=== PATIENT | female | born 1960 | race Caucasian/White ===

== ENCOUNTER → 2016-08-13 | Outpatient (CLI) | payer BC ==
--- NOTE | 2016-08-13 17:56 | US ---
EXAMINATION TYPE: US venous doppler duplex LE LT DATE OF EXAM: 08/13/2016 5:24 PM COMPARISON: NONE CLINICAL HISTORY: left leg pain. SIDE PERFORMED: left VESSELS IMAGED: External Iliac Vein (EIV) Common Femoral Vein Deep Femoral Vein Greater Saphenous Vein * Femoral Vein Popliteal Vein Small Saphenous Vein * Proximal Calf Veins (* superficial vessels) IMPRESSION: Negative for deep venous thrombosis, left lower extremity.
== END | disposition home or self-care (01) ==
LOC: RADUSMAIN 16:58
PROVIDERS: ATTEND Family Medicine
DX: M79.605 Pain in left leg (principal)

== ENCOUNTER 2016-11-18 15:47 | Inpatient (IN) | payer BC ==
--- NOTE | 2016-11-18 16:41 | ED ---
General Adult HPI - General Chief complaint: Altered Mental Status Stated complaint: HX: Stroke/Vison problem Time Seen by Provider: 11/18/16 16:30 Source: patient, RN notes reviewed Mode of arrival: ambulatory Limitations: no limitations - History of Present Illness Initial comments: Patient is a pleasant 55-year-old female presenting to the emergency department with concerns regarding her vision. Patient states around 1:30 she had loss of vision on the left part of the left eye. Fairly sudden onset. Symptoms lasted 10 or 15 minutes then resolved. Patient is back to normal at this time. Patient also had some mild paresthesias of the left arm. Patient did have a history of a stroke in 2009 with similar symptoms. Patient is having a right- sided headache. No confusion. No weakness. - Related Data Home Medications Medication Instructions Recorded Confirmed Aspirin 81 mg PO HS 11/18/16 11/18/16 Citalopram Hydrobromide [CeleXA] 40 mg PO HS 11/18/16 11/18/16 Hydrochlorothiazide [Hydrodiuril] 37.5 mg PO DAILY 11/18/16 11/18/16 Levothyroxine Sodium [Synthroid] 88 mcg PO DAILY 11/18/16 11/18/16 Nortriptyline [Pamelor] 75 mg PO HS 11/18/16 11/18/16 Simvastatin [Zocor] 40 mg PO HS 11/18/16 11/18/16 Allergies Allergy/AdvReac Type Severity Reaction Status Date / Time cheese Allergy Unknown Verified 11/18/16 16:20 egg Allergy Unknown Verified 11/18/16 16:20 influenza virus vaccine, Allergy Unknown Verified 11/18/16 16:22 specific mold Allergy Unknown Verified 11/18/16 16:20 mushroom Allergy Unknown Verified 11/18/16 16:20 phenobarbital Allergy Unknown Verified 11/18/16 16:20 Childhood Review of Systems ROS Statement: Those systems with pertinent positive or pertinent negative responses have been documented in the HPI. ROS Other: All systems not noted in ROS Statement are negative. Constitutional: Denies: fever Eyes: Denies: eye pain ENT: Denies: ear pain Respiratory: Denies: cough Cardiovascular: Denies: chest pain Endocrine: Denies: fatigue Gastrointestinal: Denies: abdominal pain Genitourinary: Denies: dysuria Musculoskeletal: Denies: back pain Skin: Denies: rash Neurological: Reports: headache Past Medical History Past Medical History: CVA/TIA, Hyperlipidemia, Hypertension, Thyroid Disorder History of Any Multi-Drug Resistant Organisms: None Reported Additional Past Surgical History / Comment(s): Right knee, Right wrist. Past Psychological History: No Psychological Hx Reported Smoking Status: Former smoker Past Alcohol Use History: Occasional Past Drug Use History: None Reported General Exam Limitations: no limitations General appearance: alert, in no apparent distress Head exam: Present: atraumatic Eye exam: Present: normal appearance, PERRL, EOMI Expanded Eyelids: Normal Inspection: Bilateral Pupils: Regular, Round: Bilateral Sclera/Conjunctival: Normal Inspection: Bilateral Posterior chamber: Normal Inspection: Bilateral ENT exam: Present: normal oropharynx Neck exam: Present: normal inspection Respiratory exam: Present: normal lung sounds bilaterally Cardiovascular Exam: Present: regular rate, normal rhythm Expanded Peripheral pulses: 2+: Radial (R), Radial (L), Dorsalis Pedis (R), Dorsalis Pedis (L) GI/Abdominal exam: Present: soft. Absent: tenderness Extremities exam: Present: normal inspection Neurological exam: Present: alert, CN II-XII intact. Absent: motor sensory deficit Expanded Cranial nerves: EOM's Intact: Normal Sensory exam: Upper Extremity Light Touch: Normal, Lower Extremity Light Touch: Normal Motor strength exam: RUE: 5, LUE: 5, RLE: 5, LLE: 5 Eye Response: (4) open spontaneously Motor Response: (6) obeys commands Verbal Response: (5) oriented Psychiatric exam: Present: normal affect, normal mood Skin exam: Absent: rash Course Vital Signs 11/18/16 16:11 Pulse Rate 96 Respiratory 18 Rate Blood Pressure 141/82 O2 Sat by Pulse 98 Oximetry EKG Findings - EKG Comments: EKG Findings:: Normal sinus rhythm 93. WI 172. QRS 96. QT 396. QTc 492. Left axis. LVH criteria. Septal Q waves. No acute ST change. Medical Decision Making - Medical Decision Making Patient reevaluated and unchanged. Patient updated on results and plan. Case was discussed in detail with Dr. Winchester, who will admit his patient. - Lab Data Result diagrams: 11/18/16 16:11 11/18/16 16:11 Lab Results 11/18/16 11/18/16 11/18/16 Range/Units 16:11 16:11 16:11 WBC 8.3 (3.8-10.6) k/uL RBC 4.51 (3.80-5.40) m/uL Hgb 14.1 (11.4-16.0) gm/dL Hct 44.7 (34.0-46.0) % MCV 99.2 (80.0-100.0) fL MCH 31.4 (25.0-35.0) pg MCHC 31.6 (31.0-37.0) g/dL RDW 13.4 (11.5-15.5) % Plt Count 226 (150-450) k/uL Neutrophils % 62 % Lymphocytes % 27 % Monocytes % 5 % Eosinophils % 3 % Basophils % 1 % Neutrophils # 5.1 (1.3-7.7) k/uL Lymphocytes # 2.3 (1.0-4.8) k/uL Monocytes # 0.4 (0-1.0) k/uL Eosinophils # 0.2 (0-0.7) k/uL Basophils # 0.1 (0-0.2) k/uL PT (9.0-12.0) sec INR (<1.1) APTT (22.0-30.0) sec Sodium 138 (137-145) mmol/L Potassium 3.7 (3.5-5.1) mmol/L Chloride 103 (98-107) mmol/L Carbon Dioxide 24 (22-30) mmol/L Anion Gap 11 mmol/L BUN 16 (7-17) mg/dL Creatinine 0.68 (0.52-1.04) mg/dL Est GFR (MDRD) Af Amer >60 (>60 ml/min/1.73 sqM) Est GFR (MDRD) Non-Af >60 (>60 ml/min/1.73 sqM) Glucose 84 (74-99) mg/dL Calcium 9.0 (8.4-10.2) mg/dL Total Bilirubin 0.5 (0.2-1.3) mg/dL AST 24 (14-36) U/L ALT 25 (9-52) U/L Alkaline Phosphatase 86 (38-126) U/L Total Creatine Kinase 67 (30-135) U/L CK-MB (CK-2) 1.0 (0.0-2.4) ng/mL CK-MB (CK-2) Rel Index 1.5 Troponin I 0.013 (0.000-0.034) ng/mL Total Protein 7.7 (6.3-8.2) g/dL Albumin 4.1 (3.5-5.0) g/dL 11/18/16 Range/Units 16:11 WBC (3.8-10.6) k/uL RBC (3.80-5.40) m/uL Hgb (11.4-16.0) gm/dL Hct (34.0-46.0) % MCV (80.0-100.0) fL MCH (25.0-35.0) pg MCHC (31.0-37.0) g/dL RDW (11.5-15.5) % Plt Count (150-450) k/uL Neutrophils % % Lymphocytes % % Monocytes % % Eosinophils % % Basophils % % Neutrophils # (1.3-7.7) k/uL Lymphocytes # (1.0-4.8) k/uL Monocytes # (0-1.0) k/uL Eosinophils # (0-0.7) k/uL Basophils # (0-0.2) k/uL PT 11.9 (9.0-12.0) sec INR 1.2 (<1.1) APTT 21.1 L (22.0-30.0) sec Sodium (137-145) mmol/L Potassium (3.5-5.1) mmol/L Chloride (98-107) mmol/L Carbon Dioxide (22-30) mmol/L Anion Gap mmol/L BUN (7-17) mg/dL Creatinine (0.52-1.04) mg/dL Est GFR (MDRD) Af Amer (>60 ml/min/1.73 sqM) Est GFR (MDRD) Non-Af (>60 ml/min/1.73 sqM) Glucose (74-99) mg/dL Calcium (8.4-10.2) mg/dL Total Bilirubin (0.2-1.3) mg/dL AST (14-36) U/L ALT (9-52) U/L Alkaline Phosphatase (38-126) U/L Total Creatine Kinase (30-135) U/L CK-MB (CK-2) (0.0-2.4) ng/mL CK-MB (CK-2) Rel Index Troponin I (0.000-0.034) ng/mL Total Protein (6.3-8.2) g/dL Albumin (3.5-5.0) g/dL - Radiology Data Radiology results: image reviewed (Chest x-ray shows no acute process. Computed tomography scan of the brain shows large old right posterior frontal and right parietal cortical infarct.) Disposition Clinical Impression: Transient ischemic attack (TIA) Disposition: ADMITTED IP TO THIS HOSP Time of Disposition: 18:16
[2016-11-18] MEDS ORDERED: SODIUM CHLORIDE 0.9% 1,000 ML IV STA (16:46)
[2016-11-18 17:17] LABS: ALT 25 U/L (9-52); AST 24 U/L (14-36); Alkaline Phosphatase 86 U/L (38-126); Anion Gap 11 mmol/L; Basophils # (A) 0.1 k/uL (0-0.2); Basophils % (A) 1 %; Blood Urea Nitrogen 16 mg/dL (7-17); CH 32.5; Carbon Dioxide 24 mmol/L (22-30); Chloride 103 mmol/L (98-107); Eosinophils # (A) 0.2 k/uL (0-0.7); Eosinophils % (A) 3 %; Glucose 84 mg/dL (74-99); HCT 44.7 % (34.0-46.0); HGB 14.1 gm/dL (11.4-16.0); Luc # (Auto) 0.15; Luc % (Auto) 2; Lymphocytes # (A) 2.3 k/uL (1.0-4.8); Lymphocytes % (A) 27 %; MCH 31.4 pg (25.0-35.0); MCHC 31.6 g/dL (31.0-37.0); MCV 99.2 fL (80.0-100.0); Monocytes # (A) 0.4 k/uL (0-1.0); Monocytes % (A) 5 %; Neutrophils # (A) 5.1 k/uL (1.3-7.7); Neutrophils % (A) 62 %; Non-African American GFR(MDRD) >60 (>60 ml/min/1.73 sqM); Potassium 3.7 mmol/L (3.5-5.1); RBC 4.51 m/uL (3.80-5.40); RDW 13.4 % (11.5-15.5); Sodium 138 mmol/L (137-145); Total Bilirubin 0.5 mg/dL (0.2-1.3); Total Protein 7.7 g/dL (6.3-8.2); WBC 8.3 k/uL (3.8-10.6); WBC (Perox) 8.78
[2016-11-18 17:18] LABS: INR 1.2 (<1.1); Prothrombin Time 11.9 sec (9.0-12.0)
[2016-11-18 17:29] LABS: Partial Thromboplastin Time 21.1 sec (22.0-30.0)
[2016-11-18 17:34] LABS: Troponin I 0.013 ng/mL (0.000-0.034)
--- NOTE | 2016-11-18 17:47 | CT ---
EXAMINATION TYPE: CT brain wo con DATE OF EXAM: 11/18/2016 5:34 PM COMPARISON: 10/30/2010 HISTORY: Patient complains of blurry vision with a history of prior stroke. CT DLP: 823.6 mGycm Automated exposure control for dose reduction was used. FINDINGS: There is a 4 cm area of hypodensity involving right posterior frontal lobe and right parietal lobe re lated to old cortical infarct. There is no mass effect nor midline shift. There is no sign of intracr anial hemorrhage. The calvarium is intact. IMPRESSION: Large old right posterior frontal and right parietal cortical infarct. No change compared to old exam . No acute intracranial abnormality.
--- NOTE | 2016-11-18 17:49 | XR ---
EXAMINATION TYPE: XR chest 1V portable DATE OF EXAM: 11/18/2016 5:34 PM COMPARISON: 10/30/2010 HISTORY: Blurred vision TECHNIQUE: Single frontal view of the chest is obtained. FINDINGS: There is no heart failure nor confluent pneumonic infiltrate. There are no hilar masses. C ostophrenic angles are clear. Bony thorax appears intact. IMPRESSION: No active cardiopulmonary disease. Inspiration is less than old exam.
[2016-11-18] MEDS ORDERED: ASPIRIN 325 MG TAB PO STA (18:17)
[2016-11-18] MEDS: SODIUM CHLORIDE 0.9% 1,000 ML IV SCH (18:46)
[2016-11-18 22:14] VITALS: BMI 29.2
[2016-11-18] MEDS: BUTA/APAP/CAF/COD 50-325-40-30 CAP PO PRN (22:38)
[2016-11-18] MEDS: CITALOPRAM HYDROBROMIDE 20 MG TAB PO SCH (22:39)
[2016-11-18] MEDS: HYDROCHLOROTHIAZIDE 25 MG TAB PO SCH (22:39)
[2016-11-18] MEDS: ATORVASTATIN 20 MG TAB PO SCH (22:40)
[2016-11-18] MEDS: NORTRIPTYLINE 25 MG CAP PO SCH (22:40)
[2016-11-19] MEDS: SODIUM CHLORIDE 0.9% 1,000 ML IV SCH ×3 (04:01→23:22)
[2016-11-19] MEDS: LEVOTHYROXINE 88 MCG TAB PO SCH (06:12)
[2016-11-19 07:36] LABS: Glucose,Whole Blood 91 mg/dL (75-99)
--- NOTE | 2016-11-19 08:06 | P.HPIM ---
History of Present Illness H&P Date: 11/19/16 Chief Complaint: Visual loss This is a history and physical an 55-year-old white female essentially admitted because of visual loss and distortion. She states yesterday she had acute visual loss of the left visual field. It was sudden in onset. It was not described as classic amaurosis PDX. However symptoms lasted for about 15 minutes. But because of her previous stroke symptoms in 2009, she was evaluated in the emergency room and is now appropriately admitted. She did have some mild headache and no postictal state. No previous history of seizure disorder. She has normal history depression, hypertension with hyperlipidemia. Multiple ALLERGIES are otherwise noted. Review of Systems Constitutional: Denies chills, Denies fever Eyes: denies blurred vision, denies pain Ears, nose, mouth and throat: Denies headache, Denies sore throat Cardiovascular: Denies chest pain, Denies shortness of breath Respiratory: Denies cough Gastrointestinal: Denies abdominal pain, Denies diarrhea, Denies nausea, Denies vomiting Neurological: Reports as per HPI, Reports visual changes Past Medical History Past Medical History: CVA/TIA, Hyperlipidemia, Hypertension, Thyroid Disorder Additional Past Medical History / Comment(s): 10-26-2009. HYPOTHYROID History of Any Multi-Drug Resistant Organisms: None Reported Additional Past Surgical History / Comment(s): Right knee, Right wrist. Past Anesthesia/Blood Transfusion Reactions: No Reported Reaction Past Psychological History: No Psychological Hx Reported Smoking Status: Light tobacco smoker Past Alcohol Use History: Occasional Past Drug Use History: None Reported - Past Family History Father Family Medical History: No Reported History Mother Family Medical History: No Reported History Medications and Allergies Home Medications Medication Instructions Recorded Confirmed Type Aspirin 325 mg PO DAILY 11/18/16 11/18/16 History Citalopram Hydrobromide [CeleXA] 40 mg PO HS 11/18/16 11/18/16 History Hydrochlorothiazide [Hydrodiuril] 37.5 mg PO DAILY 11/18/16 11/18/16 History Levothyroxine Sodium [Synthroid] 88 mcg PO DAILY 11/18/16 11/18/16 History Nortriptyline [Pamelor] 75 mg PO HS 11/18/16 11/18/16 History Simvastatin [Zocor] 40 mg PO HS 11/18/16 11/18/16 History Allergies Allergy/AdvReac Type Severity Reaction Status Date / Time cheese Allergy Unknown Verified 11/18/16 16:20 egg Allergy Unknown Verified 11/18/16 16:20 influenza virus vaccine, Allergy Unknown Verified 11/18/16 16:22 specific mold Allergy Unknown Verified 11/18/16 16:20 mushroom Allergy Unknown Verified 11/18/16 16:20 phenobarbital Allergy Unknown Verified 11/18/16 16:20 Childhood Physical Exam Vitals: Vital Signs Temp Pulse Pulse Resp BP BP BP 11/19/16 04:15 79 16 180/56 11/19/16 00:00 16 11/18/16 23:45 93 16 106/59 11/18/16 22:45 16 141/74 11/18/16 21:45 98.6 F 89 16 143/72 11/18/16 21:04 85 16 155/77 11/18/16 19:15 90 16 152/93 Pulse Ox 11/19/16 04:15 94 L 11/19/16 00:00 11/18/16 23:45 98 11/18/16 22:45 98 11/18/16 21:45 95 11/18/16 21:04 98 11/18/16 19:15 Intake and Output 11/18/16 11/19/16 11/19/16 22:59 06:59 14:59 Intake Total 60 Output Total 450 800 Balance -390 -800 Intake: IV 60 Sodium Chloride 0.9% 1, 60 000 ml @ 100 mls/hr IV . Q10H [facility] Rx#:[id number] Output: Urine 450 800 Other: Voiding Method Toilet # Voids 1 Weight 65.6 kg 65.9 kg - Constitutional General appearance: no acute distress - EENT Eyes: EOMI - Neck Neck: no lymphadenopathy - Respiratory Respiratory: bilateral: CTA - Cardiovascular Rhythm: regular Heart sounds: normal: S1, S2 - Gastrointestinal General gastrointestinal: no organomegaly, soft, no tenderness - Integumentary Integumentary: normal - Musculoskeletal Musculoskeletal: left sided weakness - Psychiatric Psychiatric: A&O x's 3, appropriate affect Results CBC & Chem 7: 11/18/16 16:11 11/18/16 16:11 Thrombosis Risk Factor Assmnt - Choose All That Apply Any of the Below Risk Factors Present?: Yes Each Factor Represents 1 point: Age 41-60 years Other Risk Factors: No Thrombosis Risk Factor Assessment Total Risk Factor Score: 1 Thrombosis Risk Factor Assessment Level: Low Risk Assessment and Plan (1) Visual changes Status: Acute (2) Hyperlipidemia Status: Chronic (3) Hypothyroidism Status: Chronic (4) Transient ischemic attack (TIA) Status: Acute Plan: We'll go ahead and consult neurology. Check echocardiogram and carotid Doppler if not done in the emergency room. We'll continue to follow from a medical perspective. Reconcile home medications. At this time she is a full code. He orders otherwise. Time with Patient: Greater than 30
[2016-11-19] MEDS: HYDROCHLOROTHIAZIDE 25 MG TAB PO SCH (09:20)
[2016-11-19] MEDS: BUTA/APAP/CAF/COD 50-325-40-30 CAP PO PRN ×2 (09:21→15:31)
--- NOTE | 2016-11-19 11:15 | ECHOF ---
Referral Reason:Thrombus MEASUREMENTS -------- HEIGHT: 149.9 cm WEIGHT: 65.8 kg BP: 180/56 RVIDd: 2.1 cm (< 3.3) IVSd: 1.0 cm (0.6 - 1.1) LVIDd: 4.0 cm (3.9 - 5.3) LVPWd: 1.1 cm (0.6 - 1.1) IVSs: 1.3 cm LVIDs: 2.4 cm LVPWs: 1.4 cm LA Diam: 3.0 cm (2.7 - 3.8) LAESV Index (A-L): 26.47 ml/m Ao Diam: 3.0 cm (2.0 - 3.7) AV Cusp: 1.2 cm (1.5 - 2.6) MV EXCURSION: 12.495 mm (> 18.000) MV EF SLOPE: 62 mm/s (70 - 150) EPSS: 0.7 cm MV E Randell: 1.31 m/s MV DecT: 271 ms MV A Randell: 1.15 m/s MV E/A Ratio: 1.13 AV maxP.63 mmHg AV meanP.31 mmHg AR PHT: 641 ms RAP: 5.00 mmHg RVSP: 31.97 mmHg FINDINGS -------- Sinus rhythm. This was a technically adequate study. The left ventricular size is normal. Left ventricular wall thickness is normal. Overall left ventricular systolic function is normal with, an EF between 60 - 65 %. The right ventricle is normal in size. Normal LA size by volume 22+/-6 ml/m2. The right atrium is normal in size. There is mild aortic regurgitation. There is mild aortic stenosis present. Peak/mean gradient across the Aortic Valve is 28.63mmHg / 17.31mmHg. The mitral valve leaflets are mild to moderately thickened. Mild mitral annular calcification present. Mild mitral regurgitation is present. Mild tricuspid regurgitation present. Right ventricular systolic pressure is normal at < 35 mmHg. The pulmonic valve was not well visualized. The aortic root size is normal. Normal inferior vena cava with normal inspiratory collapse consistent with estimated right atrial pressure of 5 mmHg. The pericardium is normal. CONCLUSIONS -------- 1. Sinus rhythm. 2. There is mild aortic stenosis present. 3. Peak/mean gradient across the Aortic Valve is 28.63mmHg / 17.31mmHg. 4. The mitral valve leaflets are mild to moderately thickened. 5. Mild mitral annular calcification present. 6. Mild mitral regurgitation is present. 7. Mild tricuspid regurgitation present. 8. Right ventricular systolic pressure is normal at < 35 mmHg. 9. The pulmonic valve was not well visualized. 10. The aortic root size is normal. 11. Normal inferior vena cava with normal inspiratory collapse consistent with estimated right atrial pressure of 5 mmHg. 12. This was a technically adequate study. 13. The pericardium is normal. 14. The left ventricular size is normal. 15. Left ventricular wall thickness is normal. 16. Overall left ventricular systolic function is normal with, an EF between 60 - 65 %. 17. The right ventricle is normal in size. 18. Normal LA size by volume 22+/-6 ml/m2. 19. The right atrium is normal in size. 20. There is mild aortic regurgitation. QA TEST ANALYST: Anita Cardona RDCS
--- NOTE | 2016-11-19 11:43 | US ---
EXAMINATION TYPE: US carotid duplex BILAT DATE OF EXAM: 11/19/2016 8:41 AM COMPARISON: Previous exam 30 October 2010 CLINICAL HISTORY: Stenosis. Stroke 2010, visual disturbance EXAM MEASUREMENTS: RIGHT: Peak Systolic Velocity (PSV) cm/sec ----- Right CCA: 55.9 ----- Right ICA: 88.4 ----- Right ECA: 80.5 ICA/CCA ratio: 1.6 RIGHT: End Diastole cm/sec ----- Right CCA: 20.4 ----- Right ICA: 35.2 ----- Right ECA: 16.0 LEFT: Peak Systolic Velocity (PSV) cm/sec ----- Left CCA: 68.6 ----- Left ICA: 88.7 ----- Left ECA: 86.9 ICA/CCA ratio: 1.3 LEFT: End Diastole cm/sec ----- Left CCA: 24.1 ----- Left ICA: 42.4 ----- Left ECA: 20.6 VERTEBRALS (direction of flow): Right Vertebral: Antegrade Left Vertebral: Antegrade Mild heterogeneous plaque at bilateral bulbs with no significant stenosis seen. IMPRESSION: No hemodynamic significant stenosis of the proximal internal carotid arteries bilaterally by Doppler criteria, an indirect measurement of carotid stenosis Criteria for Assigning % of Stenosis / Diameter reduction (Estimation based on the indirect measurements of the internal carotid artery velocities (ICA PSV). 1. Normal (no stenosis)=ICA PSV < 125 cm/s: ratio < 2.0: ICA EDV<40 cm/s. 2. Less than 50% stenosis=ICA PSV < 125 cm/s: ratio < 2.0: ICA EDV<40 cm/s. 3. 50 to 69% stenosis=ICA PSV of 125 to 230 cm/s: ration 2.0 ? 4.0: ICA EDV 40-100 cm/s. 4. Greater than 70% stenosis to near occlusion= ICA PSV > 230 cm/s: ratio > 4.0: ICA EDV > 100 cm/s. 5. Near occlusion= ICA PSV velocities may be low or undetectable: variable ratio and ICA EDV. 6. Total occlusion=unable to detect flow.
[2016-11-19] MEDS: ASPIRIN 325 MG TAB PO SCH (17:30)
[2016-11-19] MEDS: NORTRIPTYLINE 25 MG CAP PO SCH (19:52)
[2016-11-19] MEDS: ATORVASTATIN 20 MG TAB PO SCH (19:52)
[2016-11-19] MEDS: CITALOPRAM HYDROBROMIDE 20 MG TAB PO SCH (21:35)
--- NOTE | 2016-11-19 22:02 | P.CNNES ---
History of Present Illness Consult date: 11/18/16 Requesting physician: Devonte Sevilla Reason for Consult: Altered Mental Status Chief complaint: vision changes History of Present Illness: Patient's 55-year-old female who presented to the emergency department with visual related complaints. Patient states around 1330 hrs. yesterday she had loss of vision in the lateral half of her left eye. Patient also had right eye lateral field floaters. Recurrence was sudden in onset. Symptoms lasted 10-15 minutes and resolved. Patient does report that visual changes happen intermittently. Patient also has complaints of right-sided headache. Patient is currently using Fioricet as her abortive medication for her headaches since she was admitted. Patient also had mild paresthesias of the left arm with mild left arm weakness that resolved to baseline form her previous stroke. Patient does have a history of stroke in 2009 with similar symptoms. Patient did not have any confusion. On contact the patient was supine in bed and visitors at the bedside. The patient was in no acute distress. Review of Systems unless noted in the HPI above, all systems are negative. Constitutional: Reports fever Past Medical History Past Medical History: CVA/TIA, Hyperlipidemia, Hypertension, Thyroid Disorder Additional Past Medical History / Comment(s): 10-26-2009. HYPOTHYROID History of Any Multi-Drug Resistant Organisms: None Reported Additional Past Surgical History / Comment(s): Right knee, Right wrist. Past Anesthesia/Blood Transfusion Reactions: No Reported Reaction Past Psychological History: No Psychological Hx Reported Smoking Status: Light tobacco smoker Past Alcohol Use History: Occasional Past Drug Use History: None Reported - Past Family History Father Family Medical History: No Reported History Mother Family Medical History: No Reported History Medications and Allergies Home Medications Medication Instructions Recorded Confirmed Type Aspirin 325 mg PO DAILY 11/18/16 11/18/16 History Citalopram Hydrobromide [CeleXA] 40 mg PO HS 11/18/16 11/18/16 History Hydrochlorothiazide [Hydrodiuril] 37.5 mg PO DAILY 11/18/16 11/18/16 History Levothyroxine Sodium [Synthroid] 88 mcg PO DAILY 11/18/16 11/18/16 History Nortriptyline [Pamelor] 75 mg PO HS 11/18/16 11/18/16 History Simvastatin [Zocor] 40 mg PO HS 11/18/16 11/18/16 History Allergies Allergy/AdvReac Type Severity Reaction Status Date / Time influenza virus vaccine, Allergy Unknown Verified 11/18/16 16:22 specific mold Allergy Unknown Verified 11/18/16 16:20 mushroom Allergy Unknown Verified 11/18/16 16:20 phenobarbital Allergy Unknown Verified 11/18/16 16:20 Childhood Physical Examination - Vital Signs Vital Signs: Vital Signs Temp Pulse Pulse Resp BP BP Pulse Ox 11/19/16 20:22 97.7 F 77 14 118/75 11/19/16 20:12 79 79 16 11/19/16 19:46 97.9 F 79 16 101/64 97 11/19/16 16:00 79 80 13 11/19/16 15:52 97.7 F 80 13 122/78 98 11/19/16 12:00 79 79 12 11/19/16 11:32 97.6 F 79 12 125/86 100 11/19/16 08:23 79 76 10 L 11/19/16 07:45 97.0 F L 76 10 L 104/59 97 11/19/16 04:15 79 16 180/56 94 L 11/19/16 00:00 16 11/18/16 23:45 93 16 106/59 98 11/18/16 22:45 16 141/74 98 11/18/16 21:45 98.6 F 89 16 143/72 95 Intake and Output 11/19/16 11/19/16 11/19/16 06:59 14:59 22:59 Intake Total 1060 337 Output Total 800 850 400 Balance -800 210 -63 Intake: IV 800 Sodium Chloride 0.9% 1, 800 000 ml @ 100 mls/hr IV . Q10H [facility] Rx#:[id number] Oral 260 337 Output: Urine 800 850 400 Other: Voiding Method Toilet Toilet Toilet # Voids 1 Weight 65.9 kg Constitutional: AOx3, cooperative HEENT: NC/AT, no facial asymmetry is seen. Throat: Supple, no masses Respiratory: No increased work of breathing Cardiac: Regular rate and Rhythm GI: non tender, non distended Musculoskeletal: Automatic Winder Operator strengths are 4+/5 -LUE, 5/5 RUE, Lower extremity strengths are equal bilaterally at 5/5. Lyphedema noted in the LUE. Neurological: CN II-XII in tact, patient was AOx3, speech and language are normal, no unilateralizing weakness, no seizure activity note on physical exam. Sensation was normal. Integementary: no rash, no erythema Psychiatric: mood and affect appropriate Results - Laboratory Findings CBC and BMP: 11/18/16 16:11 11/18/16 16:11 Assessment and Plan (1) Migraine Status: Acute (2) Transient ischemic attack (TIA) Status: Acute (3) Visual changes Status: Acute Plan: Patient does have a history of stroke in 2009 with similar onset symptoms. Patient has not returned to baseline and her symptoms are waxing and waning at this time. On exam, the patient did have left upper extremity weakness compared to right. As well as complaints of intermittent and significant right head pain, left lateral visual field cut and right lateral field floaters. Patient has been provided Fioricet which has failed to decrease her headaches and head pain to a tolerable level. Based on the patient's history of migraine as well as CVA and her current lack of resolution to her symptoms, I am going to order an MRI of the brain without contrast to attempt to identify any other new or underlying etiology. EEG has been ordered. Serum homocystine level has been ordered. Lipid panel has been ordered. Patient may continue Fioricet as an abortive medication for her head pain. Prescribed Ativan 1 mg to be used to facilitate MRI due to the patient's anxiety. continue aspirin and Lipitor at current dose of frequency.Continue neuro checks. status: Neurology will continue to follow right updates as needed or warranted. I discussed the patient's pertinent medical information with Dr. Hercules. He agrees with the plan of care as implemented.
[2016-11-19] MEDS ORDERED: LORazepam 2 MG/ML SYRINGE IV ONE (22:10)
[2016-11-20] MEDS: LEVOTHYROXINE 88 MCG TAB PO SCH (06:18)
[2016-11-20 06:39] LABS: Cholesterol 106 mg/dL (<200); HDL Cholesterol 41 mg/dL (40-60); Triglycerides 63 mg/dL (<150)
--- NOTE | 2016-11-20 08:43 | MR ---
EXAMINATION TYPE: MR brain wo con DATE OF EXAM: 11/20/2016 8:20 AM COMPARISON: CT brain 2 days earlier. HISTORY: TIA per order. Admitted for neuro deficits or blurred vision 2 days earlier TECHNIQUE: Multiplanar, multisequence imaging of the brain and brainstem is performed without IV cont rast. FINDINGS: Motion artifact degradation is seen. Diffusion weighted images demonstrate no evidence of a recent infarct or other diffusion abnormality. There is no worrisome extraaxial fluid collection . There is ventricular and sulcal prominence consis tent with diffuse cerebral atrophy. There is large old infarct right frontal parietal region in the t he MCA distribution redemonstrated. There are some scattered small foci of T2 hyperintensity seen thr oughout the white matter bilaterally. Less than 10 lesions are felt present. Lesions are presumed on basis of product of chronic small vessel ischemic change. Midline structures demonstrate normal morphology. The craniocervical junction appears within normal limits. Normal vascular flow voids are present. The visualized sinuses are clear and the globes are intact. Some increased fluid signal bilateral mastoid air cells is present. IMPRESSION: There is large infarct right frontal parietal region in the MCA distribution redemonstrat ed. There is mild diffuse cerebral atrophy and chronic small vessel ischemic change noted. No evidenc e of a recent infarct.
[2016-11-20] MEDS: ASPIRIN 325 MG TAB PO SCH (10:12)
[2016-11-20] MEDS: HYDROCHLOROTHIAZIDE 25 MG TAB PO SCH (10:12)
[2016-11-20] MEDS: SODIUM CHLORIDE 0.9% 1,000 ML IV SCH (11:38)
[2016-11-20 15:44] VITALS: BP 120/75; PULSE 81; RESP 18; TEMP 97.8
--- NOTE | 2016-11-20 15:49 | P.PN ---
Subjective Principal diagnosis: transischemic attack. This 55-year-old white female who has had previous history of CVA in 2009 who came in with visual distortion and possible TIA symptomatology. MRI is pending. However, echocardiogram and carotid Doppler are nominal. He still continues to have residual from previous CVA but no continued headache stated swallowing. Objective - Vital Signs Vital signs: Vital Signs Temp 97.0 F L 11/20/16 07:30 Pulse 76 11/20/16 07:42 Resp 16 11/20/16 07:42 BP 102/57 11/20/16 07:30 Pulse Ox 97 11/20/16 07:30 Intake & Output 11/19/16 11/20/16 11/20/16 18:59 06:59 18:59 Intake Total 1060 1737 Output Total 1250 Balance -190 1737 Weight 66 kg Intake: IV 800 800 Sodium Chloride 0.9% 1, 800 800 000 ml @ 100 mls/hr IV . Q10H ANGELITA Rx#:[id number] Oral 260 937 Output: Urine 1250 Other: Voiding Method Toilet Toilet Toilet # Voids 1 - Constitutional General appearance: Present: average body habitus - EENT Eyes: Absent: abnormal pupil - Neck Neck: Absent: stridor - Respiratory Respiratory: bilateral: CTA - Cardiovascular Rhythm: regular Heart sounds: normal: S1, S2 - Gastrointestinal General gastrointestinal: Present: soft. Absent: tenderness - Musculoskeletal Musculoskeletal: Present: left sided weakness - Psychiatric Psychiatric: Present: A&O x's 3 - Labs CBC & Chem 7: 11/18/16 16:11 11/18/16 16:11 Assessment and Plan (1) Visual changes Status: Acute (2) Hyperlipidemia Status: Chronic (3) Hypothyroidism Status: Chronic (4) Transient ischemic attack (TIA) Status: Acute Plan: await MRI results. Appreciate neurology input. Anticipate discharge once neurology clears the patient and decides whether or not she deserves recurrent and chronic anticoagulation given her previous CVA history.
--- NOTE | 2016-11-20 15:54 | P.DS ---
Providers Date of admission: 11/18/16 18:17 Attending physician: Christopher Winchester Primary care physician: Christopher Winchester - Discharge Diagnosis(es) (1) Visual changes Current Visit: Yes Status: Acute Priority: Medium (2) Hyperlipidemia Current Visit: Yes Status: Chronic (3) Hypothyroidism Current Visit: Yes Status: Chronic (4) Transient ischemic attack (TIA) Current Visit: Yes Status: Acute Priority: High Hospital Course: This is a discharge transfer summary on a 55-year-old white female with history of previous infarct/CVA in 2009. The patient was admitted because of visual distortion. Neurology and ophthalmology were consulted. We suspect migraine versus optic neuritis element. MRI is negative for any type of new finding. She now is stable. Giselle has been tolerating with codeine. Question need for long-term use or intermittent long-term use for this medication. She'll just be discharged once cleared by neurology and follow-up with me in approximately 3-7 days. Patient Condition at Discharge: Stable Plan - Discharge Summary Discharge Medication List Aspirin 325 mg PO DAILY 11/18/16 [History] Citalopram Hydrobromide [CeleXA] 40 mg PO HS 11/18/16 [History] Hydrochlorothiazide [Hydrodiuril] 37.5 mg PO DAILY 11/18/16 [History] Levothyroxine Sodium [Synthroid] 88 mcg PO DAILY 11/18/16 [History] Nortriptyline [Pamelor] 75 mg PO HS 11/18/16 [History] Simvastatin [Zocor] 40 mg PO HS 11/18/16 [History] Aspirin 325 mg PO DAILY tab 11/20/16 [Rx] Follow up Appointment(s)/Referral(s): Christopher Winchester MD [Primary Care Provider] - 1 Week Discharge Disposition: HOME SELF-CARE
--- NOTE | 2016-11-20 22:25 | P.PN ---
Subjective Principal diagnosis: TIA Patient is a 55-year-old female being followed by neurology who presented to the ED with vision changes. Changes include: Left eye lateral left cut, right eye lateral floaters. Symptoms were intermittent and lasted 10-15 minutes then resolved. Patient returned back to baseline with the exception of headache and mild paresthesias of the left arm. Patient does have a history of both migraines and CVA. Headache is centered over the right side of the head. No confusion. No weakness. On contact today, the patient was supine in bed and resting and in no acute distress with family in the room. Objective - Vital Signs Vital signs: Vital Signs Temp 97.8 F 11/20/16 15:37 Pulse 81 11/20/16 15:37 Resp 18 11/20/16 15:37 BP 120/75 11/20/16 15:37 Pulse Ox 98 11/20/16 15:37 Intake & Output 11/20/16 11/20/16 11/21/16 06:59 18:59 06:59 Intake Total 1737 Balance 1737 Weight 66 kg Intake: IV 800 Sodium Chloride 0.9% 1, 800 000 ml @ 100 mls/hr IV . Q10H ANGELITA Rx#:[id number] Oral 937 Other: Voiding Method Toilet Toilet # Voids 1 - Exam Constitutional: AOx3, cooperative HEENT: NC/AT, no facial asymmetry is see. Neck: Supple, no masses Respiratory: No increased work of breathing Cardiac: Regular rate and Rhythm GI: non tender, non distended Musculoskeletal: Computer Networker strengths are equal bilaterally 5/5, Lower extremity strengths are equal bilaterally at 5/5. Neurological: CN II-XII in tact, patient was AOx3, speech and language are normal, no unilateralizing weakness, no seizure activity note on physical exam. Sensation was normal. Integementary: no rash, no erythema Psychiatric: mood and affect appropriate - Constitutional Constitutional Comment(s): All systems not noted in HPI above are considered negative. - Labs CBC & Chem 7: 11/18/16 16:11 11/18/16 16:11 Assessment and Plan (1) Migraine Status: Acute (2) Transient ischemic attack (TIA) Status: Acute (3) Visual changes Status: Acute Plan: Patient does have a history of stroke in 2009 with similar onset symptoms. Patient has returned to baseline. On exam, the patient no longer had upper extremity weakness. Visual changes had resolved. Patient is resting comfortably. States Fioricet did reduce her head pain. MRI noted no new changes. EEG has been ordered. Serum homocystine level Normal. Lipid panel was normal. Patient may continue Fioricet as an abortive medication for her head pain. Patient will continue aspirin and Lipitor existing dose and frequency. status: Neurology will The patient for discharge. Patient to be notified to follow up with our office in 10-14 days. I discussed the patient's pertinent medical information with Dr. Hercules. He agrees with the plan of care as implemented.
--- NOTE | 2016-12-09 09:20 | EEG ---
DATE OF SERVICE: 11/20/2016 REASON FOR TESTING: Transient ischemic attack. AGE: 55Y DESCRIPTION OF THE PROCEDURE: This EEG was performed using a 21-channel digital electroencephalograph, following the international 10 to 20 system. DESCRIPTION OF THE RECORDING: From the beginning of the tracing, and with the patient's eyes closed, the background rhythm was mostly consisting of 8 Hz alpha frequency in the posterior occipital leads. No obvious asymmetry is seen. Frequent muscle and movement artifacts are noticed. Photic stimulation was performed with a minimal driving response seen. No pathological waves were elicited. Hyperventilation was not performed. The patient remains awake throughout the tracing. No obvious epileptiform discharges were seen. Her EKG lead showed a regular rate and rhythm. INTERPRETATION: This awake EEG can be considered within normal limits. There was no asymmetry seen. No epileptiform discharges were noticed. The absence of epileptiform discharges does not rule out the diagnosis of epilepsy, therefore, clinical correlation is recommended.
== END 2016-11-20 16:36 | disposition home or self-care (01) | DRG 69 ==
LOC: EC 15:47 → 6SEL 18:17
PROVIDERS: ADMIT Family Medicine; ATTEND Family Medicine
DX: G45.9 Transient cerebral ischemic attack, unspecified (principal); I10 Essential (primary) hypertension; H46.9 Unspecified optic neuritis; G43.909 Migraine, unspecified, not intractable, without status migrainosus; E03.9 Hypothyroidism, unspecified; E78.5 Hyperlipidemia, unspecified; F32.9 Major depressive disorder, single episode, unspecified; F17.200 Nicotine dependence, unspecified, uncomplicated; Z86.73 Personal history of transient ischemic attack (TIA), and cerebral infarction without residual deficits; Z79.82 Long term (current) use of aspirin; Z79.899 Other long term (current) drug therapy
CPT/HCPCS: 36415; 70450; 70551; 71010; 80053; 80061; 82550; 82553; 83090; 84484; 85025; 85610; 85730; 93005; 93306; 93880; 95819

== ENCOUNTER → 2017-12-23 | Outpatient (CLI) | payer BC ==
--- NOTE | 2017-12-28 11:50 | MM ---
Reason for exam: screening (asymptomatic). Last mammogram was performed 4 years and 11 months ago. History: Patient is nulliparous. Benign left mammotome panel of the left breast, January 11, 2006. Physical Findings: A clinical breast exam by your physician is recommended on an annual basis and results should be correlated with mammographic findings. MG 3D Screening Mammo W/Cad Bilateral CC and MLO view(s) were taken. Prior study comparison: January 20, 2013, UP DIGITAL BILATERAL MAMMOGRAM w/CAD. January 10, 2013, bilateral digital screening mammo w/CAD. There are scattered fibroglandular densities. No significant changes when compared with prior studies. ASSESSMENT: Benign, BI-RAD 2 RECOMMENDATION: Routine screening mammogram of both breasts in 1 year.
== END | disposition home or self-care (01) ==
LOC: RADMAMWWP 13:28
PROVIDERS: ATTEND Family Medicine
DX: Z12.31 Encounter for screening mammogram for malignant neoplasm of breast (principal)
CPT/HCPCS: 77063; 77067

== ENCOUNTER → 2018-11-03 | Outpatient (CLI) | payer BC ==
--- NOTE | 2018-11-03 13:25 | CT ---
EXAMINATION TYPE: CT angio chest DATE OF EXAM: 11/03/2018 COMPARISON: None HISTORY: 57-year-old female Chest discomfort, elevated d-dimer, cardiomegaly TECHNIQUE: Contiguous axial scanning of the chest performed with IV Contrast, patient injected with 1 00 mL of Isovue 370. Coronal/sagittal MIP reconstructions performed. CT DLP: 210.8 mGycm Automated exposure control for dose reduction was used. FINDINGS: The heart is mildly enlarged. Trace pericardial fluid. No flattening of the interventricular septum b ut there is prominent reflux of contrast into the hepatic veins. Coronary vessel calcifications are p resent. Mild aneurysm ascending aorta 4.0 cm. Conventional arch vessel branching anatomy. Satisfactory opacification of the pulmonary arterial system. No evidence for pulmonary embolus. No thoracic lymphadenopathy by CT size criteria. Visualized upper abdomen shows no gross abnormal body. Bones: Accentuated midthoracic kyphosis. No osseous destructive process. Evaluation of the lungs shows mild diffuse bronchial wall thickening. Some mild patchy peripheral lef t basilar opacity is present. No pleural effusion. IMPRESSION: 1. NO EVIDENCE FOR PULMONARY EMBOLUS. 2. CARDIOMEGALY, CAD, AND PROMINENT REFLUX OF CONTRAST INTO THE HEPATIC VEINS. CORRELATE FOR ELEVATED RIGHT HEART PRESSURES. 3. MILD ANEURYSM ASCENDING AORTA 4.0 CM. 4. MILD DIFFUSE BRONCHIAL WALL THICKENING SUGGESTS BRONCHITIS OR ASTHMA. THERE IS SOME PATCHY OPACITY AT THE LATERAL LEFT BASE THAT COULD REPRESENT ATELECTASIS OR DEVELOPING INFILTRATE/PNEUMONIA. CLINIC ALLY CORRELATE.
== END | disposition home or self-care (01) ==
LOC: RADCTMAIN 12:39
PROVIDERS: ATTEND Family Medicine
DX: I25.10 Atherosclerotic heart disease of native coronary artery without angina pectoris (principal); I51.7 Cardiomegaly; I71.2 Thoracic aortic aneurysm, without rupture; R91.8 Other nonspecific abnormal finding of lung field; Z88.0 Allergy status to penicillin; Z88.1 Allergy status to other antibiotic agents
CPT/HCPCS: 83880; 71275; 36415; Q9967

== ENCOUNTER → 2018-11-03 | Outpatient (CLI) | payer BC ==
--- NOTE | 2018-11-03 19:14 | ECHOF ---
Referral Reason:I35.0 AORTIC STENOSIS MEASUREMENTS -------- HEIGHT: 154.9 cm WEIGHT: 66.7 kg BP: 118/75 RVIDd: 2.7 cm (< 3.3) IVSd: 1.2 cm (0.6 - 1.1) LVIDd: 4.6 cm (3.9 - 5.3) LVPWd: 1.2 cm (0.6 - 1.1) IVSs: 1.3 cm LVIDs: 3.8 cm LVPWs: 1.8 cm LA Diam: 3.8 cm (2.7 - 3.8) LAESV Index (A-L): 38.53 ml/m Ao Diam: 2.9 cm (2.0 - 3.7) AV Cusp: 1.3 cm (1.5 - 2.6) MV EXCURSION: 12.495 mm (> 18.000) MV EF SLOPE: 45 mm/s (70 - 150) EPSS: 1.5 cm MV E Randell: 2.17 m/s MV DecT: 115 ms MV A Randell: 1.83 m/s MV E/A Ratio: 1.18 AV maxP.62 mmHg AV maxP.62 mmHg AV meanP.68 mmHg AR PHT: 550 ms RAP: 15.00 mmHg RVSP: 71.27 mmHg FINDINGS -------- Sinus rhythm. This was a technically adequate study. The left ventricular size is normal. There is borderline concentric left ventricular hypertrophy. Overall left ventricular systolic function is moderate-severely impaired with, an EF between 30 - 35 %. The right ventricle is normal in size. LA is moderately dilated 34-39 ml/m2 The right atrium is normal in size. There is moderate aortic valve sclerosis. There is mild aortic regurgitation. There is mild aorti c stenosis present. Peak/mean gradient across the Aortic Valve is 29.62mmHg / 14.68mmHg. The mitral valve leaflets are moderately thickened. Moderate mitral annular calcification present. Severe mitral regurgitation is present. The peak and mean MV gradients are 15.94mmHg 6.99mmHg as measured by doppler. Moderate mitral stenosis. Severe tricuspid regurgitation present. There is severe pulmonary hypertension. The right ventric ular systolic pressure, as measured by Doppler, is 71.27mmHg. The pulmonic valve was not well visualized. The aortic root size is normal. Normal inferior vena cava with less than 50% inspiratory collapse consistent with estimated right atr ial pressure of 15 mmHg. There is no pericardial effusion. CONCLUSIONS -------- 1. Sinus rhythm. 2. This was a technically adequate study. 3. The left ventricular size is normal. 4. There is borderline concentric left ventricular hypertrophy. 5. Overall left ventricular systolic function is moderate-severely impaired with, an EF between 30 - 35 %. 6. The right ventricle is normal in size. 7. LA is moderately dilated 34-39 ml/m2 8. The right atrium is normal in size. 9. There is moderate aortic valve sclerosis. 10. There is mild aortic regurgitation. 11. There is mild aortic stenosis present. 12. Peak/mean gradient across the Aortic Valve is 29.62mmHg / 14.68mmHg. 13. The mitral valve leaflets are moderately thickened. 14. Moderate mitral annular calcification present. 15. Severe mitral regurgitation is present. 16. The peak and mean MV gradients are 15.94mmHg 6.99mmHg as measured by doppler. 17. Moderate mitral stenosis. 18. Severe tricuspid regurgitation present. 19. There is severe pulmonary hypertension. 20. The right ventricular systolic pressure, as measured by Doppler, is 71.27mmHg. 21. The pulmonic valve was not well visualized. 22. The aortic root size is normal. 23. Normal inferior vena cava with less than 50% inspiratory collapse consistent with estimated right atrial pressure of 15 mmHg. 24. There is no pericardial effusion. BUDGET ENGINEER: Anita Cardona RDCS
== END | disposition home or self-care (01) ==
LOC: RADECHMAIN 12:43
PROVIDERS: ATTEND Internal Medicine
DX: I08.3 Combined rheumatic disorders of mitral, aortic and tricuspid valves (principal); I27.20 Pulmonary hypertension, unspecified
CPT/HCPCS: 93306

== ENCOUNTER → 2018-11-24 | Outpatient (CLI) | payer BC ==
[2018-11-24 19:52] LABS: Anion Gap 8.9 mmol/L (4.00-12.00); Calcium 8.9 mg/dL (8.7-10.3); Carbon Dioxide 29.1 mmol/L (21.6-31.8); Potassium 3.8 mmol/L (3.5-5.5)
== END | disposition home or self-care (01) ==
LOC: LABWHC1 13:43
PROVIDERS: ATTEND Internal Medicine
DX: I35.0 Nonrheumatic aortic (valve) stenosis (principal); I11.0 Hypertensive heart disease with heart failure; I50.1 Left ventricular failure, unspecified
CPT/HCPCS: 36415; 80048; 83880

== ENCOUNTER → 2018-12-12 | Outpatient (CLI) | payer BC ==
[2018-12-12 19:22] LABS: Anion Gap 9.3 mmol/L (4.00-12.00); Calcium 9.2 mg/dL (8.7-10.3); Carbon Dioxide 28.7 mmol/L (21.6-31.8); Potassium 3.9 mmol/L (3.5-5.5)
== END ==
LOC: LABWHC1 13:42
PROVIDERS: ATTEND Internal Medicine
DX: I50.1 Left ventricular failure, unspecified (principal)
CPT/HCPCS: 36415; 80048; 83880

== ENCOUNTER → 2018-12-19 | Outpatient (CLI) | payer BC ==
[2018-12-19 18:48] LABS: Anion Gap 8.9 mmol/L (4.00-12.00); Calcium 9.3 mg/dL (8.7-10.3); Carbon Dioxide 29.1 mmol/L (21.6-31.8); Potassium 3.8 mmol/L (3.5-5.5)
== END ==
LOC: LABWHC1 14:31
PROVIDERS: ATTEND Internal Medicine
DX: I50.1 Left ventricular failure, unspecified (principal)
CPT/HCPCS: 36415; 80048; 83880

== ENCOUNTER → 2019-01-13 | Outpatient (CLI) | payer BC ==
[2019-01-13 16:52] LABS: African American GFR (CKD) 112.3 (60.0-200.0); BUN/Creat Ratio 28.57 Ratio (12.00-20.00); Calcium 8.8 mg/dL (8.7-10.3); Potassium 3.6 mmol/L (3.5-5.5)
== END | disposition home or self-care (01) ==
LOC: LABWHC1 10:58
PROVIDERS: ATTEND Internal Medicine
DX: I10 Essential (primary) hypertension (principal)
CPT/HCPCS: 36415; 80048

== ENCOUNTER → 2019-02-10 | Outpatient (CLI) | payer BC ==
[2019-02-10 16:21] LABS: African American GFR (CKD) 95.5 (60.0-200.0); Anion Gap 9.4 mmol/L (4.00-12.00); BUN/Creat Ratio 21.25 Ratio (12.00-20.00); Calcium 9.4 mg/dL (8.7-10.3); Carbon Dioxide 29.6 mmol/L (21.6-31.8); Potassium 3.8 mmol/L (3.5-5.5)
== END | disposition home or self-care (01) ==
LOC: LABWHC1 09:56
PROVIDERS: ATTEND Internal Medicine
DX: I50.1 Left ventricular failure, unspecified (principal)
CPT/HCPCS: 36415; 80048; 83880

== ENCOUNTER → 2019-02-22 | Outpatient (CLI) | payer BC ==
[2019-02-22 15:57] LABS: African American GFR (CKD) 95.5 (60.0-200.0); Anion Gap 8.3 mmol/L (4.00-12.00); BUN/Creat Ratio 28.75 Ratio (12.00-20.00); Calcium 9.1 mg/dL (8.7-10.3); Carbon Dioxide 30.7 mmol/L (21.6-31.8)
== END | disposition home or self-care (01) ==
LOC: LABWHC1 10:34
PROVIDERS: ATTEND Internal Medicine
DX: I50.1 Left ventricular failure, unspecified (principal)
CPT/HCPCS: 36415; 80048; 83880

== ENCOUNTER → 2019-03-01 | Outpatient (CLI) | payer BC ==
[2019-03-01 20:40] LABS: African American GFR (CKD) 95.5 (60.0-200.0); Anion Gap 13.3 mmol/L (4.00-12.00); BUN/Creat Ratio 27.5 Ratio (12.00-20.00); Calcium 8.8 mg/dL (8.7-10.3); Carbon Dioxide 26.7 mmol/L (21.6-31.8); Non-African American GFR(CKD) 82.4 (60.0-200.0); Potassium 3.6 mmol/L (3.5-5.5)
== END | disposition home or self-care (01) ==
LOC: LABWHC1 14:54
PROVIDERS: ATTEND Internal Medicine
DX: I50.1 Left ventricular failure, unspecified (principal)
CPT/HCPCS: 36415; 80048; 83880

== ENCOUNTER → 2019-03-09 | Outpatient (CLI) | payer BC ==
[2019-03-09 18:39] LABS: African American GFR (CKD) 95.5 (60.0-200.0); Anion Gap 8.4 mmol/L (4.00-12.00); BUN/Creat Ratio 28.75 Ratio (12.00-20.00); Carbon Dioxide 31.6 mmol/L (21.6-31.8); Potassium 3.3 mmol/L (3.5-5.5)
== END | disposition home or self-care (01) ==
LOC: LABWHC1 10:51
PROVIDERS: ATTEND Internal Medicine
DX: I50.1 Left ventricular failure, unspecified (principal)
CPT/HCPCS: 36415; 80048; 83880

== ENCOUNTER → 2019-03-20 | Outpatient (CLI) | payer BC ==
[2019-03-21 01:02] LABS: African American GFR (CKD) 82.8 (60.0-200.0); Anion Gap 7.1 mmol/L (4.00-12.00); BUN/Creat Ratio 28.89 Ratio (12.00-20.00); Calcium 9.1 mg/dL (8.7-10.3); Carbon Dioxide 30.9 mmol/L (21.6-31.8); Non-African American GFR(CKD) 71.5 (60.0-200.0); Potassium 3.9 mmol/L (3.5-5.5)
== END ==
LOC: LABWHC1 14:27
PROVIDERS: ATTEND Internal Medicine
DX: I50.1 Left ventricular failure, unspecified (principal); I10 Essential (primary) hypertension
CPT/HCPCS: 36415; 80048

== ENCOUNTER 2019-09-29 15:46 | Emergency (ER) | payer BC ==
[2019-09-29 15:50] VITALS: TEMP 97.6
--- NOTE | 2019-09-29 16:17 | ED ---
General Adult HPI - General Chief complaint: Shortness of Breath Stated complaint: SOB/poss blood clot Time Seen by Provider: 09/29/19 16:01 Source: patient Mode of arrival: ambulatory Limitations: no limitations - History of Present Illness Initial comments: Dictation was produced using [employer] dictation software. please excuse any grammatical, word or spelling errors. Chief Complaint: 58-year-old male past medical history of heart failure presents with shortness of breath. History of Present Illness: He 8-year-old female she has past medical history of heart, dyslipidemia and hypertension thyroid disease. She's been feeling short of breath for the last several days. She called medical staff at [facility]. He told her she needs come to the emergency department for evaluation of possible blood clot. Patient reports that she has a hole in her heart. She suffered a stroke in 2009. Patient denies any pain symptoms at this time. No focal neurologic deficits. Denies any lower extremity symptoms. Denies any history of DVT. The ROS documented in this emergency department record has been reviewed and confirmed by me. Those systems with pertinent positive or negative responses have been documented in the HPI. All other systems are other negative and/or noncontributory. PHYSICAL EXAM: General Impression: Alert and oriented x3, not in acute distress HEENT: Normocephalic atraumatic, extra-ocular movements intact, pupils equal and reactive to light bilaterally, mucous membranes moist. Cardiovascular: Tachycardic, regular no murmurs Chest: Minimal crackles Abdomen: Bowel sounds present, abdomen soft, non-tender, non-distended, no organomegaly Musculoskeletal: Pulses present and equal in all extremities, no peripheral edema, no asymmetrical leg swelling or calf tenderness or popliteal pain Motor: no focal deficits noted Neurological: CN II-XII grossly intact, no focal motor or sensory deficits noted Skin: Intact with no visualized rashes Psych: Normal affect and mood ED course: 58-year-old female presents with chief complaint of shortness of breath. She was sent in by [facility] medical staff. She had discussion with their staff over the phone and she was instructed to come to the emergency department for evaluation of possible blood clot, Dennis Huang pulmonary embolus. Signs upon arrival shows heart rate of 107, rest of vital signs within acceptable limits. EKG shows left bundle branch block. Left bundle branch block pattern not evident from EKG back in 2017. Patient has no pain complaints at this time. EKG does not meet sgarbossa criteria. No PE is on differential, heart failure is more likely the constipation shortness of breath given patient's history. Chart review shows that patient had echocardiogram done 11/03/2018. There is no comment on atrial or ventricular septal defect. Patient did have depressed ejection fraction at that time. Return evaluation obtained. CBC unremarkable. Coag panel unremarkable. D- dimer 0.32. Metabolic panel is negative. Cardiac enzymes negative. Brain natruretic peptide is 3520. Chest x-ray shows cardiomegaly without suspicious acute pulmonary process. Patient given some Lasix. Clinical presentation con sistent with mild CHF exacerbation. Patient given the option to be admitted however she requested discharge. She states she will follow-up with her pain management specialist from [facility]. She requests a work note for today and tomorrow. Sooner follow-up with primary care physician or pain management specialist. Return parameters discussed. EKG interpretation: Ventricular rate 104, sinus tachycardia, left bundle branch block, NE interval 174, QRS 150, QTc 533. No NE prolongation, no QTC prolongation, no ST or T-wave changes noted. EKG compared to [default value] showing no changes. Overall, this EKG is unremarkable - Related Data Home Medications Medication Instructions Recorded Confirmed Aspirin 325 mg PO DAILY 11/18/16 11/18/16 Citalopram Hydrobromide [CeleXA] 40 mg PO HS 11/18/16 11/18/16 Hydrochlorothiazide [Hydrodiuril] 37.5 mg PO DAILY 11/18/16 11/18/16 Levothyroxine Sodium [Synthroid] 88 mcg PO DAILY 11/18/16 11/18/16 Nortriptyline [Pamelor] 75 mg PO HS 11/18/16 11/18/16 Simvastatin [Zocor] 40 mg PO HS 11/18/16 11/18/16 Previous Rx's Medication Instructions Recorded Aspirin 325 mg PO DAILY tab 11/20/16 Allergies Allergy/AdvReac Type Severity Reaction Status Date / Time influenza virus vaccine, Allergy Unknown Verified 09/29/19 15:50 specific mold Allergy Unknown Verified 09/29/19 15:50 mushroom Allergy Unknown Verified 09/29/19 15:50 phenobarbital Allergy Unknown Verified 09/29/19 15:50 Childhood Review of Systems ROS Statement: Those systems with pertinent positive or pertinent negative responses have been documented in the HPI. ROS Other: All systems not noted in ROS Statement are negative. Past Medical History Past Medical History: Heart Failure, CVA/TIA, Hyperlipidemia, Hypertension, Thyroid Disorder Additional Past Medical History / Comment(s): 10-26-2009. HYPOTHYROID History of Any Multi-Drug Resistant Organisms: None Reported Additional Past Surgical History / Comment(s): Right knee, Right wrist. Past Anesthesia/Blood Transfusion Reactions: No Reported Reaction Past Psychological History: No Psychological Hx Reported Smoking Status: Light tobacco smoker Past Alcohol Use History: Occasional Past Drug Use History: None Reported - Past Family History Father Family Medical History: No Reported History Mother Family Medical History: No Reported History General Exam Limitations: no limitations Course Vital Signs 09/29/19 15:48 Temperature 97.6 F Pulse Rate 107 H Respiratory 22 Rate Blood Pressure 130/87 O2 Sat by Pulse 98 Oximetry Medical Decision Making - Lab Data Result diagrams: 09/29/19 16:08 09/29/19 16:08 Lab Results 09/29/19 09/29/19 09/29/19 Range/Units 16:08 16:08 16:08 WBC 7.0 (3.8-10.6) k/uL RBC 4.19 (3.80-5.40) m/uL Hgb 13.0 (11.4-16.0) gm/dL Hct 40.8 (34.0-46.0) % MCV 97.5 (80.0-100.0) fL MCH 31.1 (25.0-35.0) pg MCHC 31.9 (31.0-37.0) g/dL RDW 13.9 (11.5-15.5) % Plt Count 257 (150-450) k/uL Neutrophils % 57 % Lymphocytes % 35 % Monocytes % 4 % Eosinophils % 1 % Basophils % 1 % Neutrophils # 3.9 (1.3-7.7) k/uL Lymphocytes # 2.4 (1.0-4.8) k/uL Monocytes # 0.3 (0-1.0) k/uL Eosinophils # 0.1 (0-0.7) k/uL Basophils # 0.1 (0-0.2) k/uL PT 12.0 (9.0-12.0) sec INR 1.2 H (<1.2) APTT 24.2 (22.0-30.0) sec D-Dimer 0.32 (<0.60) mg/L FEU Sodium 139 (137-145) mmol/L Potassium 4.1 (3.5-5.1) mmol/L Chloride 103 (98-107) mmol/L Carbon Dioxide 25 (22-30) mmol/L Anion Gap 11 mmol/L BUN 24 H (7-17) mg/dL Creatinine 1.06 H (0.52-1.04) mg/dL Est GFR (CKD-EPI)AfAm 68 (>60 ml/min/1.73 sqM) Est GFR (CKD-EPI)NonAf 59 (>60 ml/min/1.73 sqM) Glucose 99 (74-99) mg/dL Calcium 9.2 (8.4-10.2) mg/dL Magnesium 1.8 (1.6-2.3) mg/dL Troponin I (0.000-0.034) ng/mL NT-Pro-B Natriuret Pep pg/mL 09/29/19 09/29/19 Range/Units 16:08 16:08 WBC (3.8-10.6) k/uL RBC (3.80-5.40) m/uL Hgb (11.4-16.0) gm/dL Hct (34.0-46.0) % MCV (80.0-100.0) fL MCH (25.0-35.0) pg MCHC (31.0-37.0) g/dL RDW (11.5-15.5) % Plt Count (150-450) k/uL Neutrophils % % Lymphocytes % % Monocytes % % Eosinophils % % Basophils % % Neutrophils # (1.3-7.7) k/uL Lymphocytes # (1.0-4.8) k/uL Monocytes # (0-1.0) k/uL Eosinophils # (0-0.7) k/uL Basophils # (0-0.2) k/uL PT (9.0-12.0) sec INR (<1.2) APTT (22.0-30.0) sec D-Dimer (<0.60) mg/L FEU Sodium (137-145) mmol/L Potassium (3.5-5.1) mmol/L Chloride (98-107) mmol/L Carbon Dioxide (22-30) mmol/L Anion Gap mmol/L BUN (7-17) mg/dL Creatinine (0.52-1.04) mg/dL Est GFR (CKD-EPI)AfAm (>60 ml/min/1.73 sqM) Est GFR (CKD-EPI)NonAf (>60 ml/min/1.73 sqM) Glucose (74-99) mg/dL Calcium (8.4-10.2) mg/dL Magnesium (1.6-2.3) mg/dL Troponin I <0.012 (0.000-0.034) ng/mL NT-Pro-B Natriuret Pep 3520 pg/mL Disposition Clinical Impression: Heart failure Disposition: HOME SELF-CARE Condition: Good Instructions (If sedation given, give patient instructions): Heart Failure (ER) Is patient prescribed a controlled substance at d/c from ED?: No Referrals: Christopher Winchester MD [Primary Care Provider] - 1-2 days Time of Disposition: 18:03
[2019-09-29 16:20] LABS: Basophils # (A) 0.1 k/uL (0-0.2); Basophils % (A) 1 %; Eosinophils # (A) 0.1 k/uL (0-0.7); Eosinophils % (A) 1 %; HCT 40.8 % (34.0-46.0); Lymphocytes # (A) 2.4 k/uL (1.0-4.8); Lymphocytes % (A) 35 %; MCH 31.1 pg (25.0-35.0); MCHC 31.9 g/dL (31.0-37.0); MCV 97.5 fL (80.0-100.0); Mean Platelet Volume 7.9; Monocytes # (A) 0.3 k/uL (0-1.0); Monocytes % (A) 4 %; Neutrophils # (A) 3.9 k/uL (1.3-7.7); Neutrophils % (A) 57 %; Platelet Count 257 k/uL (150-450); RBC 4.19 m/uL (3.80-5.40); RDW 13.9 % (11.5-15.5)
[2019-09-29 16:31] LABS: Calcium 9.2 mg/dL (8.4-10.2); Magnesium 1.8 mg/dL (1.6-2.3); Potassium 4.1 mmol/L (3.5-5.1)
--- NOTE | 2019-09-29 16:31 | XR ---
EXAMINATION TYPE: XR chest 1V portable DATE OF EXAM: 09/29/2019 COMPARISON: Chest x-ray November 18, 2016. CTA chest November 03, 2018. HISTORY: Dyspnea. TECHNIQUE: Single AP portable frontal upright view of the chest is obtained. FINDINGS: Overlying EKG leads are now present. There is no focal air space opacity, pleural effusion, or pneumothorax seen. The cardiac silhouette size is enlarged. The osseous structures are intact. IMPRESSION: Cardiomegaly without suspicious acute pulmonary process.
[2019-09-29 16:41] LABS: D-Dimer 0.32 mg/L FEU (<0.60); INR 1.2 (<1.2); Partial Thromboplastin Time 24.2 sec (22.0-30.0)
[2019-09-29] MEDS ORDERED: FUROSEMIDE 10 MG/ML 4 ML VIAL IV STA (16:49)
[2019-09-29 18:09] VITALS: BP 106/82; PULSE 88; RESP 18
== END 2019-09-29 18:18 | disposition home or self-care (01) ==
LOC: EC 15:46
DX: I50.9 Heart failure, unspecified (principal); I44.7 Left bundle-branch block, unspecified; R00.0 Tachycardia, unspecified; I11.0 Hypertensive heart disease with heart failure; E78.5 Hyperlipidemia, unspecified; E03.9 Hypothyroidism, unspecified; F17.200 Nicotine dependence, unspecified, uncomplicated; Z88.7 Allergy status to serum and vaccine; Z88.8 Allergy status to other drugs, medicaments and biological substances; Z91.018 Allergy to other foods; Z91.048 Other nonmedicinal substance allergy status; Z79.82 Long term (current) use of aspirin; Z79.890 Hormone replacement therapy; Z79.899 Other long term (current) drug therapy; Z86.73 Personal history of transient ischemic attack (TIA), and cerebral infarction without residual deficits
CPT/HCPCS: 36415; 93005; 85379; 83880; 80048; 83735; 84484; 85025; 85610; 85730; 71045; 99285; 96374; J1940

== ENCOUNTER 2020-05-14 08:18 | Inpatient (IN) | payer BC ==
--- NOTE | 2020-05-14 08:51 | ED ---
General Adult HPI - General Chief complaint: Shortness of Breath Stated complaint: SOB Time Seen by Provider: 05/14/20 08:27 Source: patient, RN notes reviewed Mode of arrival: ambulatory Limitations: no limitations - History of Present Illness Initial comments: This 59-year-old female with a past medical history of heart failure with ejection fraction between 30-35%, CVA, hyperlipidemia, hypertension presents to the emergency department for a chief complaint of shortness of breath. Patient reports that she has had shortness of breath for about one week. States it is progressively worsening. Patient states she has had intermittent chest pain as sociated with this shortness of breath. States walking upstairs seems to worsen her shortness of breath and chest pain. Patient is denying any chest pain at this time. Patient also admits to a productive cough with yellow sputum. Patient has been a smoker for 20 years however did quit. She has never been told she has COPD. She denies any fevers at home. Patient denies any peripheral swelling.Patient has no other complaints at this time including abdominal pain, nausea or vomiting, headache, or visual changes. - Related Data Home Medications Medication Instructions Recorded Confirmed Simvastatin [Zocor] 40 mg PO HS 11/18/16 05/14/20 Aspirin EC [Ecotrin Low Dose] 81 mg PO HS 05/14/20 05/14/20 Furosemide [Lasix] 120 mg PO DAILY 05/14/20 05/14/20 Levothyroxine Sodium [Synthroid] 75 mcg PO DAILY 05/14/20 05/14/20 Nortriptyline [Pamelor] 100 mg PO HS 05/14/20 05/14/20 Potassium Chloride ER [K-Dur 20] 60 meq PO DAILY@1200 05/14/20 05/14/20 Allergies Allergy/AdvReac Type Severity Reaction Status Date / Time influenza virus vaccine, Allergy Unknown Verified 05/14/20 09:14 specific mold Allergy Unknown Verified 05/14/20 09:14 mushroom Allergy Unknown Verified 05/14/20 09:14 phenobarbital Allergy Unknown Verified 05/14/20 09:14 Childhood EGG WHITES Allergy Rash/Hives Uncoded 05/14/20 09:14 Review of Systems ROS Statement: Those systems with pertinent positive or pertinent negative responses have been documented in the HPI. ROS Other: All systems not noted in ROS Statement are negative. Past Medical History Past Medical History: Heart Failure, CVA/TIA, Hyperlipidemia, Hypertension, Thyroid Disorder Additional Past Medical History / Comment(s): HYPOTHYROID History of Any Multi-Drug Resistant Organisms: None Reported Additional Past Surgical History / Comment(s): Right knee, Right wrist. Past Anesthesia/Blood Transfusion Reactions: No Reported Reaction Past Psychological History: No Psychological Hx Reported Smoking Status: Never smoker Past Alcohol Use History: Occasional Past Drug Use History: None Reported - Past Family History Father Family Medical History: No Reported History Mother Family Medical History: No Reported History General Exam Limitations: no limitations General appearance: alert, in no apparent distress Head exam: Present: atraumatic, normocephalic, normal inspection Eye exam: Present: normal appearance, PERRL, EOMI. Absent: scleral icterus, conjunctival injection, periorbital swelling ENT exam: Present: normal exam, mucous membranes moist Neck exam: Present: normal inspection, full ROM. Absent: tenderness, meningismus, lymphadenopathy Respiratory exam: Present: normal lung sounds bilaterally. Absent: respiratory distress, wheezes, rales, rhonchi, stridor Cardiovascular Exam: Present: regular rate, normal rhythm, normal heart sounds. Absent: systolic murmur, diastolic murmur, rubs, gallop, clicks GI/Abdominal exam: Present: soft, normal bowel sounds. Absent: distended, tenderness, guarding, rebound, rigid Neurological exam: Present: alert Course Vital Signs 05/14/20 05/14/20 08:23 10:02 Temperature 97.5 F L Pulse Rate 102 H 81 Respiratory 20 18 Rate Blood Pressure 111/78 102/74 O2 Sat by Pulse 97 100 Oximetry EKG Findings - EKG Comments: EKG Findings:: Normal sinus rhythm, Left bundle branch block, ventricular rate 91, MI interval 188, QTC 538. Compared to previous EKG from 09/29/2019 which is similar. Medical Decision Making - Medical Decision Making Vitals are stable. Patient is 97% on room air. No chest pain at this time. CBC CMP unremarkable. No leukocytosis. D-dimer is within normal limits. No ischemic changes on EKG. Troponin within normal limits. Chest x-ray image was reviewed by myself and Dr. Barajas and there does appear to be a right lower lobe pneumonia. I did call x-ray as radiologist has not yet read the report, they will be looking into this. Patient does have an elevated BNP of 6790 which is up from 3000 earlier this year. Echocardiogram last year showed an ejection fraction of 30-35%. Patient will be treated for community-acquired pneumonia as well as heart failure exacerbation. She does admit to mild swelling in her an kles as well. - Lab Data Result diagrams: 05/14/20 08:53 05/14/20 08:53 Lab Results 05/14/20 05/14/20 05/14/20 Range/Units 08:53 08:53 08:53 WBC 7.8 (3.8-10.6) k/uL RBC 4.28 (3.80-5.40) m/uL Hgb 12.8 (11.4-16.0) gm/dL Hct 42.6 (34.0-46.0) % MCV 99.6 (80.0-100.0) fL MCH 29.9 (25.0-35.0) pg MCHC 30.1 L (31.0-37.0) g/dL RDW 15.1 (11.5-15.5) % Plt Count 346 (150-450) k/uL Neutrophils % 60 % Lymphocytes % 31 % Monocytes % 5 % Eosinophils % 2 % Basophils % 1 % Neutrophils # 4.7 (1.3-7.7) k/uL Lymphocytes # 2.4 (1.0-4.8) k/uL Monocytes # 0.4 (0-1.0) k/uL Eosinophils # 0.2 (0-0.7) k/uL Basophils # 0.1 (0-0.2) k/uL Hypochromasia Marked Macrocytosis Slight PT 12.8 H (9.0-12.0) sec INR 1.3 H (<1.2) APTT 25.3 (22.0-30.0) sec D-Dimer 0.58 (<0.60) mg/L FEU Sodium 138 (137-145) mmol/L Potassium 4.2 (3.5-5.1) mmol/L Chloride 106 (98-107) mmol/L Carbon Dioxide 23 (22-30) mmol/L Anion Gap 9 mmol/L BUN 23 H (7-17) mg/dL Creatinine 0.84 (0.52-1.04) mg/dL Est GFR (CKD-EPI)AfAm 89 (>60 ml/min/1.73 sqM) Est GFR (CKD-EPI)NonAf 77 (>60 ml/min/1.73 sqM) Glucose 107 H (74-99) mg/dL Plasma Lactic Acid Abhilash (0.7-2.0) mmol/L Calcium 8.9 (8.4-10.2) mg/dL Magnesium 1.9 (1.6-2.3) mg/dL Total Bilirubin 0.9 (0.2-1.3) mg/dL AST 25 (14-36) U/L ALT 18 (4-34) U/L Alkaline Phosphatase 129 H (38-126) U/L Troponin I (0.000-0.034) ng/mL NT-Pro-B Natriuret Pep pg/mL Total Protein 7.4 (6.3-8.2) g/dL Albumin 3.8 (3.5-5.0) g/dL 05/14/20 05/14/20 05/14/20 Range/Units 08:53 08:53 08:53 WBC (3.8-10.6) k/uL RBC (3.80-5.40) m/uL Hgb (11.4-16.0) gm/dL Hct (34.0-46.0) % MCV (80.0-100.0) fL MCH (25.0-35.0) pg MCHC (31.0-37.0) g/dL RDW (11.5-15.5) % Plt Count (150-450) k/uL Neutrophils % % Lymphocytes % % Monocytes % % Eosinophils % % Basophils % % Neutrophils # (1.3-7.7) k/uL Lymphocytes # (1.0-4.8) k/uL Monocytes # (0-1.0) k/uL Eosinophils # (0-0.7) k/uL Basophils # (0-0.2) k/uL Hypochromasia Macrocytosis PT (9.0-12.0) sec INR (<1.2) APTT (22.0-30.0) sec D-Dimer (<0.60) mg/L FEU Sodium (137-145) mmol/L Potassium (3.5-5.1) mmol/L Chloride (98-107) mmol/L Carbon Dioxide (22-30) mmol/L Anion Gap mmol/L BUN (7-17) mg/dL Creatinine (0.52-1.04) mg/dL Est GFR (CKD-EPI)AfAm (>60 ml/min/1.73 sqM) Est GFR (CKD-EPI)NonAf (>60 ml/min/1.73 sqM) Glucose (74-99) mg/dL Plasma Lactic Acid Abhilash 1.4 (0.7-2.0) mmol/L Calcium (8.4-10.2) mg/dL Magnesium (1.6-2.3) mg/dL Total Bilirubin (0.2-1.3) mg/dL AST (14-36) U/L ALT (4-34) U/L Alkaline Phosphatase (38-126) U/L Troponin I 0.018 (0.000-0.034) ng/mL NT-Pro-B Natriuret Pep 6790 pg/mL Total Protein (6.3-8.2) g/dL Albumin (3.5-5.0) g/dL Disposition Clinical Impression: Pneumonia, Shortness of breath, Cough Disposition: ADMITTED IP TO THIS HOSP Condition: Fair Is patient prescribed a controlled substance at d/c from ED?: No Referrals: Christopher Winchester MD [Primary Care Provider] - 1-2 days
[2020-05-14 09:13] LABS: Albumin 3.8 g/dL (3.5-5.0); Calcium 8.9 mg/dL (8.4-10.2); Magnesium 1.9 mg/dL (1.6-2.3); Potassium 4.2 mmol/L (3.5-5.1); Total Bilirubin 0.9 mg/dL (0.2-1.3); Total Protein 7.4 g/dL (6.3-8.2)
[2020-05-14 09:18] LABS: D-Dimer 0.58 mg/L FEU (<0.60); INR 1.3 (<1.2); Partial Thromboplastin Time 25.3 sec (22.0-30.0); Prothrombin Time 12.8 sec (9.0-12.0)
[2020-05-14 09:25] LABS: Basophils # (A) 0.1 k/uL (0-0.2); Basophils % (A) 1 %; Eosinophils # (A) 0.2 k/uL (0-0.7); Eosinophils % (A) 2 %; HCT 42.6 % (34.0-46.0); HGB 12.8 gm/dL (11.4-16.0); Hypochromasia Marked; Lymphocytes # (A) 2.4 k/uL (1.0-4.8); Lymphocytes % (A) 31 %; MCH 29.9 pg (25.0-35.0); MCHC 30.1 g/dL (31.0-37.0); MCV 99.6 fL (80.0-100.0); Macrocytosis Slight; Mean Platelet Volume 7.8; Monocytes # (A) 0.4 k/uL (0-1.0); Monocytes % (A) 5 %; Neutrophils # (A) 4.7 k/uL (1.3-7.7); Neutrophils % (A) 60 %; Platelet Count 346 k/uL (150-450); RBC 4.28 m/uL (3.80-5.40); RDW 15.1 % (11.5-15.5); WBC 7.8 k/uL (3.8-10.6)
[2020-05-14] MEDS ORDERED: cefTRIAXone IN SWFI 1,000 MG/10 ML SYRINGE IVP STA (10:19)
[2020-05-14] MEDS ORDERED: AZITHROMYCIN 500 MG in SODIUM CHLORIDE 0.9% 250 ML IVPB STA (10:19)
[2020-05-14] MEDS ORDERED: FUROSEMIDE 10 MG/ML 4 ML VIAL IV STA (10:19)
[2020-05-14] MEDS ORDERED: PNEUMONIA PROTOCOL UTILIZED 1 EACH MISC PO PRN (10:30)
--- NOTE | 2020-05-14 10:50 | XR ---
EXAMINATION TYPE: XR chest 2V DATE OF EXAM: 05/14/2020 COMPARISON: 09/29/2019 HISTORY: Shortness of breath TECHNIQUE: Frontal and lateral views of the chest are obtained. FINDINGS: Scattered senescent parenchymal changes noted. Hyperinflation compatible with COPD. Right lower lobe infiltrate noted. Correlate for pneumonia. Heart size is stable. Mediastinal structures are stable and grossly unremarkable. No evidence for hilar prominence. Degenerative changes dorsal spine. IMPRESSION: 1. Right lower lobe infiltrate noted. Correlate for pneumonia.
[2020-05-14] MEDS: ALBUTEROL NEBULIZED 2.5 MG/3 ML INHALATION PRN ×2 (14:51→19:51)
[2020-05-14] MEDS: NORTRIPTYLINE 25 MG CAP PO SCH (20:48)
[2020-05-14] MEDS: ASPIRIN 81 MG PO SCH (20:48)
[2020-05-14] MEDS: ATORVASTATIN 20 MG TAB PO SCH (20:48)
[2020-05-15] MEDS: ALBUTEROL NEBULIZED 2.5 MG/3 ML INHALATION PRN ×3 (05:36→19:28)
[2020-05-15] MEDS: LEVOTHYROXINE 75 MCG TAB PO SCH (05:52)
[2020-05-15] MEDS: FUROSEMIDE 40 MG TAB PO SCH (07:53)
--- NOTE | 2020-05-15 07:59 | P.HPIM ---
History of Present Illness H&P Date: 05/15/20 Chief Complaint: shortness of breath and weakness with cough. This is a history of physical and a 59-year-old white female with known history of heart failure. Echocardiogram was done about 6 months ago and was stable however, over the last week she's been having worsening cough where she woke up and had significant weakness and shortness of breath. Pneumonia was diagnosed she is now admitted. She states breathing treatments do help her significantly. No significant chills or sweats since admission but she's had fever. No significant nausea, vomiting or diarrhea is otherwise noted. Review of Systems Constitutional: Reports chills, Reports fatigue, Reports fever, Reports sweats Eyes: denies blurred vision, denies pain Ears, nose, mouth and throat: Denies headache, Denies sore throat Cardiovascular: Denies chest pain, Denies shortness of breath Respiratory: Reports as per HPI Gastrointestinal: Denies abdominal pain, Denies diarrhea, Denies nausea, Denies vomiting Genitourinary: Denies dysuria, Denies hematuria Musculoskeletal: Denies myalgias Past Medical History Past Medical History: Heart Failure, CVA/TIA, Hyperlipidemia, Hypertension, Thyroid Disorder Additional Past Medical History / Comment(s): 2010 CVA with L arm/leg weakness and coordination problems, 2017 possibly TIA, migraines, hypothyroid History of Any Multi-Drug Resistant Organisms: None Reported Past Surgical History: Ear Surgery, Orthopedic Surgery Additional Past Surgical History / Comment(s): R knee arthroscopies x2, R wrist tendon repair surgery, bilateral myringotomy/tubes, colonoscopy. Past Anesthesia/Blood Transfusion Reactions: No Reported Reaction Smoking Status: Former smoker - Past Family History Father Family Medical History: No Reported History Additional Family Medical History / Comment(s): Father is living. Mother Family Medical History: No Reported History Additional Family Medical History / Comment(s): Mother is living and healthy Medications and Allergies Home Medications Medication Instructions Recorded Confirmed Type Simvastatin [Zocor] 40 mg PO HS 11/18/16 05/14/20 History Aspirin EC [Ecotrin Low Dose] 81 mg PO HS 05/14/20 05/14/20 History Furosemide [Lasix] 120 mg PO DAILY 05/14/20 05/14/20 History Levothyroxine Sodium [Synthroid] 75 mcg PO DAILY 05/14/20 05/14/20 History Nortriptyline [Pamelor] 100 mg PO HS 05/14/20 05/14/20 History Potassium Chloride ER [K-Dur ] 60 meq PO DAILY@1200 05/14/20 05/14/20 History Allergies Allergy/AdvReac Type Severity Reaction Status Date / Time influenza virus vaccine, Allergy Unknown Verified 05/14/20 09:14 specific mold Allergy Unknown Verified 05/14/20 09:14 mushroom Allergy Unknown Verified 05/14/20 09:14 phenobarbital Allergy Unknown Verified 05/14/20 09:14 Childhood EGG WHITES Allergy Rash/Hives Uncoded 05/14/20 09:14 Physical Exam Vitals: Vital Signs Temp Pulse Pulse Resp BP BP BP 05/15/20 07:00 97.7 F 74 16 93/57 05/15/20 05:49 88 05/15/20 05:37 88 05/15/20 01:00 97.6 F 78 20 97/64 05/14/20 20:02 92 05/14/20 19:52 92 05/14/20 19:45 97.6 F 95 20 103/73 05/14/20 16:00 18 05/14/20 15:02 82 05/14/20 15:00 97.8 F 83 18 99/66 05/14/20 14:51 81 05/14/20 10:44 78 18 103/80 05/14/20 10:02 81 18 102/74 05/14/20 08:23 97.5 F L 102 H 20 111/78 Pulse Ox 05/15/20 07:00 99 05/15/20 05:49 05/15/20 05:37 05/15/20 01:00 97 05/14/20 20:02 05/14/20 19:52 05/14/20 19:45 100 05/14/20 16:00 05/14/20 15:02 05/14/20 15:00 100 05/14/20 14:51 05/14/20 10:44 100 05/14/20 10:02 100 05/14/20 08:23 97 Intake and Output 05/14/20 05/15/20 05/15/20 22:59 06:59 14:59 Intake Total 200 100 Balance 200 100 Intake: Oral 200 100 Other: # Voids 1 1 Weight 52.617 kg - Constitutional General appearance: no acute distress - EENT Eyes: EOMI - Neck Neck: no lymphadenopathy - Respiratory Respiratory: right: rhonchi, left: diminished - Cardiovascular Rhythm: regular Heart sounds: normal: S1, S2 - Gastrointestinal General gastrointestinal: soft, no tenderness - Integumentary Integumentary: no cellulitis - Neurologic Neurologic: CNII-XII intact - Musculoskeletal Musculoskeletal: generalized weakness Results CBC & Chem 7: 05/14/20 08:53 05/14/20 08:53 Labs: Abnormal Lab Results - Last 24 Hours (Table) 05/14/20 05/14/20 05/14/20 Range/Units 08:53 08:53 08:53 MCHC 30.1 L (31.0-37.0) g/dL PT 12.8 H (9.0-12.0) sec INR 1.3 H (<1.2) BUN 23 H (7-17) mg/dL Glucose 107 H (74-99) mg/dL Alkaline Phosphatase 129 H (38-126) U/L Thrombosis Risk Factor Assmnt - Choose All That Apply Any of the Below Risk Factors Present?: Yes Each Factor Represents 1 point: Age 41-60 years, Serious lung disease incl. pneumonia (< 1month) Other Risk Factors: No Other congenital or acquired thrombophilia - If yes, enter type in comment: No Thrombosis Risk Factor Assessment Total Risk Factor Score: 2 Thrombosis Risk Factor Assessment Level: Low Risk Assessment and Plan (1) Cough Current Visit: Yes Status: Acute Code(s): R05 - COUGH SNOMED Code(s): 17551941 (2) Pneumonia Current Visit: Yes Status: Acute Code(s): J18.9 - PNEUMONIA, UNSPECIFIED ORGANISM SNOMED Code(s): 560028600 (3) Hyperlipidemia Current Visit: No Status: Chronic Code(s): E78.5 - HYPERLIPIDEMIA, UNSPECIFIED SNOMED Code(s): 30162615 (4) Hypothyroidism Current Visit: No Status: Chronic Code(s): E03.9 - HYPOTHYROIDISM, UNSPECIFIED SNOMED Code(s): 75681575 Plan: The patient will be placed on appropriate pneumonia protocol. GI and DVT prophylaxis as necessary. Check CBC and CMP in a.m. Reconcile home medications. prognosis is guarded secondary to multiple comorbidities. Time with Patient: Greater than 30
[2020-05-15] MEDS ORDERED: PANTOPRAZOLE 40 MG TABLET PO STA (08:02)
[2020-05-15] MEDS: PANTOPRAZOLE 40 MG TABLET PO SCH (09:03)
[2020-05-15] MEDS: methylPREDNISolone SOD SUCCI 40 MG/ML 1 ML VIAL IV SCH ×3 (09:03→23:21)
[2020-05-15] MEDS ORDERED: AZITHROMYCIN 500 MG in SODIUM CHLORIDE 0.9% 250 ML IVPB SCH (11:00)
[2020-05-15] MEDS: POTASSIUM CHLORIDE ER 20 MEQ TAB.ER PO SCH (11:27)
[2020-05-15] MEDS: NORTRIPTYLINE 25 MG CAP PO SCH (20:54)
[2020-05-15] MEDS: ATORVASTATIN 20 MG TAB PO SCH (20:54)
[2020-05-15] MEDS: ASPIRIN 81 MG PO SCH (20:54)
[2020-05-16 05:45] LABS: HCT 36.5 % (34.0-46.0); HGB 11.5 gm/dL (11.4-16.0); Hypochromasia Marked; MCH 31.5 pg (25.0-35.0); MCHC 31.6 g/dL (31.0-37.0); MCV 99.4 fL (80.0-100.0); Macrocytosis Slight; Mean Platelet Volume 7.7; Platelet Count 293 k/uL (150-450); RBC 3.67 m/uL (3.80-5.40); RDW 14.7 % (11.5-15.5); WBC 8.8 k/uL (3.8-10.6)
[2020-05-16] MEDS: LEVOTHYROXINE 75 MCG TAB PO SCH (05:56)
[2020-05-16] MEDS: FUROSEMIDE 40 MG TAB PO SCH (08:02)
[2020-05-16] MEDS: PANTOPRAZOLE 40 MG TABLET PO SCH (08:02)
[2020-05-16] MEDS: AZITHROMYCIN 500 MG TAB PO SCH (08:03)
[2020-05-16] MEDS: methylPREDNISolone SOD SUCCI 40 MG/ML 1 ML VIAL IV SCH ×3 (08:03→23:44)
[2020-05-16] MEDS: ALBUTEROL NEBULIZED 2.5 MG/3 ML INHALATION PRN ×4 (08:10→18:50)
--- NOTE | 2020-05-16 08:12 | P.PN ---
Subjective Progress Note Date: 05/16/20 Principal diagnosis: Pneumonia The patient is a 59-year-old white female with history of heart failure with admitted right lower lobe pneumonia. The patient is now stabilizing. She had episodes of chest pain but enzymatic elevation was not noted. She is now feeling much better. Cymetra has helped. Objective - Vital Signs Vital signs: Vital Signs Temp 97.5 F L 05/16/20 07:00 Pulse 84 05/16/20 07:00 Resp 14 05/16/20 07:59 BP 93/62 05/16/20 07:00 Pulse Ox 100 05/16/20 07:00 Intake & Output 05/15/20 05/16/20 05/16/20 18:59 06:59 18:59 Other: Voiding Method Toilet Toilet # Voids 3 - Constitutional General appearance: Present: thin - EENT Eyes: Absent: abnormal pupil - Neck Neck: Absent: lymphadenopathy - Cardiovascular Rhythm: regular Heart sounds: normal: S1, S2 Abnormal Heart Sounds: Absent: S3 Gallop - Gastrointestinal General gastrointestinal: Present: soft - Integumentary Integumentary: Absent: cellulitis - Labs CBC & Chem 7: 05/16/20 04:59 05/14/20 08:53 Labs: Abnormal Lab Results - Last 24 Hours (Table) 05/16/20 Range/Units 04:59 RBC 3.67 L (3.80-5.40) m/uL Microbiology - Last 24 Hours (Table) 05/14/20 10:30 Blood Culture - Preliminary Blood No Growth after 24 hours Assessment and Plan (1) Cough Current Visit: Yes Status: Acute Code(s): R05 - COUGH SNOMED Code(s): 42020594 (2) Pneumonia Current Visit: Yes Status: Acute Code(s): J18.9 - PNEUMONIA, UNSPECIFIED ORGANISM SNOMED Code(s): 713915563 (3) Hyperlipidemia Current Visit: No Status: Chronic Code(s): E78.5 - HYPERLIPIDEMIA, UNSPECIFIED SNOMED Code(s): 29939025 (4) Hypothyroidism Current Visit: No Status: Chronic Code(s): E03.9 - HYPOTHYROIDISM, UNSPECIFIED SNOMED Code(s): 67028683 Plan: The patient will be placed on appropriate pneumonia protocol. GI and DVT prophylaxis as necessary. Continue current regimen of antibiotic treatment. Check CBC and CMP in a.m. Anticipate discharge in the next 24-40 Time with Patient: Less than 30
[2020-05-16 09:29] LABS: African American GFR (CKD) 117.3 (60.0-200.0); Albumin 3.4 g/dL (3.80-4.90); Albumin/Globulin Ratio 1.26 (1.60-3.17); Anion Gap 11.2 mmol/L (4.00-12.00); BUN/Creat Ratio 38.33 Ratio (12.00-20.00); Calcium 8.6 mg/dL (8.7-10.3); Carbon Dioxide 22.8 mmol/L (21.6-31.8); Globulin 2.7 g/dL (1.6-3.3); Non-African American GFR(CKD) 101.2 (60.0-200.0); Potassium 4.4 mmol/L (3.5-5.5); Total Bilirubin 0.3 mg/dL (0.2-1.2); Total Protein 6.1 g/dL (6.2-8.2)
--- NOTE | 2020-05-16 10:16 | P.CRDCN ---
History of Present Illness Consult date: 05/16/20 Consult reason: congestive heart failure Chief complaint: Shortness of breath History of present illness: This is a 59-year-old female with a history of congestive heart failure, her LV function is unknown at this time however patient was noted to have an echo performed here in October of last year which revealed an ejection fraction of 30-35%. Severe mitral regurgitation, moderate mitral stenosis, severe tricuspid regurg and severe pulmonary hypertension was also noted. She also has a history of a prior CVA, hyperlipidemia, hypertension, hypothyroidism, former smoking. She presented to the hospital on this occasion with symptoms of shortness of breath with worsening nonproductive cough and associated weakness. Her chest x-ray showed a right lower lobe infiltrate. Her EKG showed a normal sinus rhythm with a left bundle-branch block pattern, left axis deviation. According to the patient, she had a cardiac catheterization and echo performed approximately 6 months ago at [facility], where she follows with a research attorney, we will attempt to get records of that information. Her home medications included Zocor 40 mg daily, potassium 60 mEq daily, Pamelor, Synthroid, Lasix 120 mg daily, and a baby aspirin. We did ask the patient if she had ever been taking the medication like metoprolol, or lisinopril in the past, she does state that she thinks she was on lisinopril and that was discontinued because of hypotension. Her blood pressure this morning is 93/60 with a heart rate in the 80s, 100% on room air. White blood cell count is normal at 8.8, hemoglobin 11.5, platelet count 293. D-dimer 0.58. Sodium 141, potassium 4.4, BUN 23, creatinine 0.6. Troponins are negative 3. Albumin 3.4. ProBNP 6790. 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 Past Anesthesia/Blood Transfusion Reactions: No Reported Reaction Smoking Status: Former smoker - Past Family History Father Family Medical History: No Reported History Additional Family Medical History / Comment(s): Father is living. Mother Family Medical History: No Reported History Additional Family Medical History / Comment(s): Mother is living and healthy Medications and Allergies Home Medications Medication Instructions Recorded Confirmed Type Simvastatin [Zocor] 40 mg PO HS 11/18/16 05/14/20 History Aspirin EC [Ecotrin Low Dose] 81 mg PO HS 05/14/20 05/14/20 History Furosemide [Lasix] 120 mg PO DAILY 05/14/20 05/14/20 History Levothyroxine Sodium [Synthroid] 75 mcg PO DAILY 05/14/20 05/14/20 History Nortriptyline [Pamelor] 100 mg PO HS 05/14/20 05/14/20 History Potassium Chloride ER [K-Dur 20] 60 meq PO DAILY@1200 05/14/20 05/14/20 History Allergies Allergy/AdvReac Type Severity Reaction Status Date / Time influenza virus vaccine, Allergy Unknown Verified 05/14/20 09:14 specific mold Allergy Unknown Verified 05/14/20 09:14 mushroom Allergy Unknown Verified 05/14/20 09:14 phenobarbital Allergy Unknown Verified 05/14/20 09:14 Childhood EGG WHITES Allergy Rash/Hives Uncoded 05/14/20 09:14 Physical Exam Vitals: Vital Signs Temp Pulse Pulse Resp BP BP Pulse Ox 05/16/20 08:20 80 05/16/20 08:10 80 05/16/20 07:59 14 05/16/20 07:00 97.5 F L 84 16 93/62 100 05/16/20 00:40 97.5 F L 86 14 99/62 97 05/15/20 19:51 97.5 F L 91 15 92/62 98 05/15/20 19:40 80 16 05/15/20 19:29 81 16 05/15/20 14:56 97.9 F 92 18 94/64 98 05/15/20 12:44 100 18 107/70 100 05/15/20 12:41 91 18 84/62 100 05/15/20 11:45 80 05/15/20 11:33 76 Intake and Output 05/15/20 05/16/20 05/16/20 22:59 06:59 14:59 Other: Voiding Method Toilet PHYSICAL EXAMINATION: GENERAL: 59-year-old female in no acute distress at the time of my examination HEENT: Head is atraumatic, normocephalic. Pupils equal, round. Sclera anicteric. Conjunctiva are clear. Mucous membranes of the mouth are moist. Neck is supple. There is no elevated jugular venous pressure. Horace carotid bruit is heard. HEART EXAMINATION: Heart S1 and S2 holosystolic murmur is heard, radiating up into the carotids bilaterally CHEST EXAMINATION: Lungs are clear with fine crackles heard bilaterally to the b ases ABDOMEN: Soft, nontender. Bowel sounds are heard. No organomegaly noted. EXTREMITIES: 2+ peripheral pulses with no evidence of peripheral edema and no calf tenderness noted. NEUROLOGIC patient is awake, alert and oriented 3. . Results 05/16/20 04:59 05/16/20 04:59 Cardiac Enzymes 05/15/20 05/15/20 05/16/20 Range/Units 14:27 20:00 04:59 AST 25 (13-35) U/L Troponin I <0.012 <0.012 (0.000-0.034) ng/mL 05/16/20 Range/Units 04:59 AST (13-35) U/L Troponin I <0.012 (0.000-0.034) ng/mL CBC 05/16/20 Range/Units 04:59 WBC 8.8 (3.8-10.6) k/uL RBC 3.67 L (3.80-5.40) m/uL Hgb 11.5 (11.4-16.0) gm/dL Hct 36.5 (34.0-46.0) % Plt Count 293 (150-450) k/uL Comprehensive Metabolic Panel 05/16/20 Range/Units 04:59 Sodium 141 (135-145) mmol/L Potassium 4.4 (3.5-5.5) mmol/L Chloride 107 (96-109) mmol/L Carbon Dioxide 22.8 (21.6-31.8) mmol/L BUN 23.0 (9.0-27.0) mg/dL Creatinine 0.6 (0.6-1.5) mg/dL Glucose 121 H (70-110) mg/dL Calcium 8.6 L (8.7-10.3) mg/dL AST 25 (13-35) U/L ALT 27 (8-44) U/L Alkaline Phosphatase 125 (41-126) U/L Total Protein 6.1 L (6.2-8.2) g/dL Albumin 3.40 L (3.80-4.90) g/dL Current Medications Generic Name Dose Route Start Last Admin Trade Name Freq PRN Reason Stop Dose Admin Albuterol Sulfate 2.5 mg 05/14/20 10:30 05/16/20 08:10 Albuterol Nebulized 2.5 Mg/3 Ml INHALATION 2.5 mg RT-Q4H PRN Administration Shortness Of Breath Or Wheezing Aspirin 81 mg 05/14/20 21:00 05/15/20 20:54 Aspirin 81 Mg PO 81 mg HS ANGELITA Administration Atorvastatin Calcium 20 mg 05/14/20 21:00 05/15/20 20:54 Atorvastatin 20 Mg Tab PO 20 mg HS ANGELITA Administration Azithromycin 500 mg 05/16/20 09:00 05/16/20 08:03 Azithromycin 500 Mg Tab PO 500 mg DAILY ANGELITA Administration Furosemide 120 mg 05/15/20 09:00 05/16/20 08:02 Furosemide 40 Mg Tab PO 120 mg DAILY ANGELITA Administration Ceftriaxone Sodium 2 gm/ 50 mls @ 100 mls/hr 05/15/20 09:00 05/16/20 08:02 Sodium Chloride IVPB 05/17/20 09:01 100 mls/hr Q24HR ANGELITA Administration Levothyroxine Sodium 75 mcg 05/15/20 06:30 05/16/20 05:56 Levothyroxine 75 Mcg Tab PO 75 mcg DAILY@0630 ANGELITA Administration Methylprednisolone Sodium Succinate 40 mg 05/15/20 08:00 05/16/20 08:03 Methylprednisolone Sod Succi 40 Mg/Ml 1 Ml Vial IV 40 mg Q8HR ANGELITA Administration Miscellaneous Information 1 each 05/14/20 10:30 Pneumonia Protocol Utilized 1 Each Misc PO ONCE PRN Per Protocol Nortriptyline HCl 100 mg 05/14/20 21:00 05/15/20 20:54 Nortriptyline 25 Mg Cap PO 100 mg HS ANGELITA Administration Pantoprazole Sodium 40 mg 05/15/20 08:15 05/16/20 08:02 Pantoprazole 40 Mg Tablet PO 40 mg [id number] ANGELITA Administration Potassium Chloride 60 meq 05/15/20 12:00 05/15/20 11:27 Potassium Chloride Er 20 Meq Tab.Er PO 60 meq DAILY@1200 ANGELITA Administration Intake and Output 05/15/20 05/16/20 05/16/20 22:59 06:59 14:59 Other: Voiding Method Toilet 05/16/20 04:59 05/16/20 04:59 EKG Interpretations (text) EKG shows a normal sinus rhythm with a left bundle-branch block pattern Assessment and Plan Plan: Assessment and plan #1 systolic congestive heart failure acute on chronic, last documented ejection fraction was 30-35% in October of last year, severe mitral regurg, moderate mitral stenosis, severe tricuspid regurg and severe pulmonary hypertension #2 pneumonia with evidence of right lower lobe infiltrate, patient is afebrile white blood cell count is normal #3 hypertension, patient is however hypotensive #4 cardiomyopathy, likely nonischemic in nature, patient states she had a car diac catheterization approximately 6 months ago which did not reveal any significantly obstructive coronary artery disease we will get records of this #5 Left branch block pattern #6 hypothyroidism #7 prior CVA #8 hyperlipidemia Plan We will obtain an echocardiogram with Doppler study. Discontinue the oral diuretics and start the patient on IV Lasix. Patient's blood pressure is running on the low side we will attempt to start a small dose of metoprolol, she is not on an SHAKA inhibitor that at this time because of hypotension. We will also obtain records from [facility] in relation to the cardiac catheterization, echo, prior EKGs, and cardiology consultation. Monitor the int jill and output along with daily weights and daily lytes BUN and creatinine. Continue antibiotics for possible pneumonia. Further recommendations to follow. DNP note has been reviewed, I agree with a documented findings and plan of care. Patient was seen and examined.
[2020-05-16] MEDS: POTASSIUM CHLORIDE ER 20 MEQ TAB.ER PO SCH (11:32)
[2020-05-16] MEDS: NORTRIPTYLINE 25 MG CAP PO SCH (21:49)
[2020-05-16] MEDS: ATORVASTATIN 20 MG TAB PO SCH (21:49)
[2020-05-16] MEDS: ASPIRIN 81 MG PO SCH (21:49)
[2020-05-17 05:29] VITALS: RESP 16
[2020-05-17] MEDS: LEVOTHYROXINE 75 MCG TAB PO SCH (06:19)
[2020-05-17 07:19] VITALS: BP 93/64; TEMP 97.6
[2020-05-17] MEDS: ALBUTEROL NEBULIZED 2.5 MG/3 ML INHALATION PRN (08:17)
[2020-05-17 08:27] VITALS: PULSE 82
[2020-05-17] MEDS ORDERED: METOPROLOL SUCCINATE (ER) 25 MG TAB.ER.24H PO SCH (09:00)
[2020-05-17] MEDS: FUROSEMIDE 40 MG TAB PO SCH (09:09)
[2020-05-17] MEDS: PANTOPRAZOLE 40 MG TABLET PO SCH (09:37)
[2020-05-17] MEDS: AZITHROMYCIN 500 MG TAB PO SCH (09:37)
[2020-05-17] MEDS: methylPREDNISolone SOD SUCCI 40 MG/ML 1 ML VIAL IV SCH (09:37)
--- NOTE | 2020-05-17 10:00 | ECHOF ---
Referral Reason:cm MEASUREMENTS -------- HEIGHT: 154.9 cm WEIGHT: 52.6 kg BP: IVSd: 1.1 cm (0.6 - 1.1) LVIDd: 4.8 cm (3.9 - 5.3) LVPWd: 1.1 cm (0.6 - 1.1) IVSs: 1.1 cm LVIDs: 4.7 cm LVPWs: 1.1 cm LAESV Index (A-L): 53.35 ml/m Ao Diam: 1.8 cm (2.0 - 3.7) AV Cusp: 1.2 cm (1.5 - 2.6) LA Diam: 3.7 cm (2.7 - 3.8) MV EXCURSION: 14.230 mm (> 18.000) MV EF SLOPE: 57 mm/s (70 - 150) EPSS: 1.4 cm MV E Randell: 1.94 m/s MV DecT: 355 ms MV A Randell: 1.03 m/s MV E/A Ratio: 1.89 AV maxP.51 mmHg AV meanP.24 mmHg AR PHT: 332 ms RAP: 5.00 mmHg RVSP: 61.32 mmHg TAPSE: 10.54 mm FINDINGS -------- Sinus rhythm. This was a technically good study. The left ventricular size is normal. Left ventricular wall thickness is normal. There is severe g lobal hypokinesis of LV . Overall left ventricular systolic function is severely impaired with, an EF < 20%. Increased LAP Grade 3 Diastolic Dysfunction. The right ventricle is normal in size. The right ventricular systolic function is severely impaired . LA is severely dilated >40 ml/m2 The right atrial size is normal. Interatrial and interventricular septum intact. Aortic valve is trileaflet and is severely thickened. There is moderate aortic regurgitation. The re is moderate aortic stenosis present. Peak/mean gradient across the Aortic Valve is 48.51mmHg / 3 2.24mmHg. The mitral valve leaflets are moderately thickened. Jjechjic-de-okerky mitral regurgitation is pres ent. The peak and mean MV gradients are 18.02mmHg 8.91mmHg as measured by doppler. Moderate mitr al stenosis. The tricuspid valve appears structurally normal. Moderate to severe tricuspid regurgitation present . There is severe pulmonary hypertension. The right ventricular systolic pressure, as measured by Doppler, is 61.32mmHg. There is no pulmonic regurgitation present. The aortic root size is normal. Normal inferior vena cava with normal inspiratory collapse consistent with estimated right atrial pre ssure of 5 mmHg. There is no pericardial effusion. CONCLUSIONS -------- 1. Left ventricular wall thickness is normal. 2. There is severe global hypokinesis of LV . 3. Overall left ventricular systolic function is severely impaired with, an EF < 20%. 4. Increased LAP Grade 3 Diastolic Dysfunction. 5. The right ventricular systolic function is severely impaired. 6. LA is severely dilated >40 ml/m2 7. Aortic valve is trileaflet and is severely thickened. 8. There is moderate aortic regurgitation. 9. There is moderate aortic stenosis present. 10. Peak/mean gradient across the Aortic Valve is 48.51mmHg / 32.24mmHg. 11. The mitral valve leaflets are moderately thickened. 12. Yhgqkera-ro-scmsot mitral regurgitation is present. 13. The peak and mean MV gradients are 18.02mmHg 8.91mmHg as measured by doppler. 14. Moderate mitral stenosis. 15. Moderate to severe tricuspid regurgitation present. 16. There is severe pulmonary hypertension. 17. There is no pericardial effusion. SENIOR GIS ANALYST: Justina Reynolds RDCS
--- NOTE | 2020-05-17 10:07 | P.PN ---
Subjective Progress Note Date: 05/17/20 This is a 59-year-old female with a history of congestive heart failure, her LV function is unknown at this time however patient was noted to have an echo performed here in October of last year which revealed an ejection fraction of 30-35%. Severe mitral regurgitation, moderate mitral stenosis, s evere tricuspid regurg and severe pulmonary hypertension was also noted. She also has a history of a prior CVA, hyperlipidemia, hypertension, hypothyroidism, former smoking. She presented to the hospital on this occasion with symptoms of shortness of breath with worsening nonproductive cough and associated weakness. Her chest x-ray showed a right lower lobe infiltrate. Her EKG showed a normal s inus rhythm with a left bundle-branch block pattern, left axis deviation. According to the patient, she had a cardiac catheterization and echo performed approximately 6 months ago at [facility], where she follows with a fruit culler, we will attempt to get records of that information. Her home medications included Zocor 40 mg daily, potassium 60 mEq daily, Pamelor, Synthroid, Lasix 120 mg daily, and a baby aspirin. We did ask the patient if she had ever been taking the medication like metoprolol, or lisinopril in the past, she does state that she thinks she was on lisinopril and that was discontinued because of hypotension. Her blood pressure this morning is 93/60 with a heart rate in the 80s, 100% on room air. White blood cell count is normal at 8.8, hemoglobin 11.5, platelet count 293. D-dimer 0.58. Sodium 141, potassium 4.4, BUN 23, creatinine 0.6. Troponins are negative 3. Albumin 3.4. ProBNP 6790. 05/17/2020 Patient was seen and examined this morning, overall feeling significantly better today. Up ambulating without any difficulty. We did review some of the records on the patient's cell phone, the paper records had not yet come over from [facility]. It appears that the patient had a NATALIYA done somewhat recently, that revealed an ejection fraction in the 40% range. She also had an old echocardiogram with Doppler study performed in 2015 or which revealed a normal ejection fraction at that time. Patient also had a nuclear stress test, which revealed a fixed defect, felt likely to be secondary to the patient's left bundle-branch block or possible LAD disease. We also asked the patient this morning if her fruit culler ever discussed with her the need for possible device, she states that he did mention it but they were just watching her at this point. Her blood pressure this morning 94/60 with a heart rate in the 80s to 90s. No lab data today. Objective - Vital Signs Vital signs: Vital Signs Temp 97.6 F 05/17/20 07:00 Pulse 82 05/17/20 08:27 Resp 16 05/17/20 07:54 BP 93/64 05/17/20 07:00 Pulse Ox 99 05/17/20 07:00 Intake & Output 05/16/20 05/17/20 05/17/20 18:59 06:59 18:59 Intake Total 50 Balance 50 Intake: Intake, IV Titration 50 Amount cefTRIAXone 2 gm In 50 Sodium Chloride 0.9% 50 ml @ 100 mls/hr IVPB Q24HR [facility] Rx#:[id number] Other: Voiding Method Toilet Toilet # Voids 2 2 2 - Exam PHYSICAL EXAMINATION: GENERAL: 59-year-old female in no acute distress at the time of my examination HEENT: Head is atraumatic, normocephalic. Pupils equal, round. Sclera anicteric. Conjunctiva are clear. Mucous membranes of the mouth are moist. Neck is supple. There is no elevated jugular venous pressure. Horace carotid bruit is heard. HEART EXAMINATION: Heart S1 and S2 holosystolic murmur is heard, radiating up into the carotids bilaterally CHEST EXAMINATION: Lungs are clear to auscultation bilaterally ABDOMEN: Soft, nontender. Bowel sounds are heard. No organomegaly noted. EXTREMITIES: 2+ peripheral pulses with no evidence of peripheral edema and no calf tenderness noted. NEUROLOGIC patient is awake, alert and oriented 3. - Labs CBC & Chem 7: 05/16/20 04:59 05/16/20 04:59 Labs: Microbiology - Last 24 Hours (Table) 05/14/20 10:30 Blood Culture - Preliminary Blood No Growth after 48 hours Assessment and Plan Plan: Assessment and plan #1 systolic congestive heart failure acute on chronic, last documented ejection fraction was 30-35% in October of last year, severe mitral regurg, moderate mitral stenosis, severe tricuspid regurg and severe pulmonary hypertension, NATALIYA performed at [facility] within the past 6 months revealed an ejection fraction of 40%. #2 pneumonia with evidence of right lower lobe infiltrate, patient is afebrile white blood cell count is normal #3 hypertension, patient is however hypotensive #4 cardiomyopathy, likely nonischemic in nature, patient states she had a cardiac catheterization approximately 6 months ago which did not reveal any significantly obstructive coronary artery disease we will get records of this #5 Left branch block pattern #6 hypothyroidism #7 prior CVA #8 hyperlipidemia Plan We will obtain an echocardiogram with Doppler study. Patient will also be started on Toprol 12-1/2 mg one tablet daily. She has been instructed to follow-up with Dr. Crescencio Moise at [facility] post discharge. DNP note has been reviewed, I agree with a documented findings and plan of care. Patient was seen and examined.
[2020-05-17] MEDS: POTASSIUM CHLORIDE ER 20 MEQ TAB.ER PO SCH (12:21)
== END 2020-05-17 12:40 | disposition home or self-care (01) | DRG 193 ==
LOC: EC 08:18 → 4SSUR 10:30
PROVIDERS: ADMIT Family Medicine; ATTEND Family Medicine
DX: J18.9 Pneumonia, unspecified organism (principal); I50.33 Acute on chronic diastolic (congestive) heart failure; I42.8 Other cardiomyopathies; I11.0 Hypertensive heart disease with heart failure; I44.7 Left bundle-branch block, unspecified; I27.20 Pulmonary hypertension, unspecified; I08.1 Rheumatic disorders of both mitral and tricuspid valves; E03.9 Hypothyroidism, unspecified; E78.5 Hyperlipidemia, unspecified; Z79.890 Hormone replacement therapy; Z79.899 Other long term (current) drug therapy; Z86.73 Personal history of transient ischemic attack (TIA), and cerebral infarction without residual deficits; Z87.891 Personal history of nicotine dependence; I95.9 Hypotension, unspecified; Z88.7 Allergy status to serum and vaccine; Z88.8 Allergy status to other drugs, medicaments and biological substances; Z91.012 Allergy to eggs
CPT/HCPCS: 36415; 71046; 80053; 83605; 83735; 83880; 84484; 85025; 85027; 85379; 85610; 85730; 87040; 93005; 93306; 94640; 94760; 96365; 96366; 96375; 99285

== ENCOUNTER → 2021-03-26 | Outpatient (CLI) | payer OTHER ==
[2021-03-26 22:29] LABS: African American GFR (CKD) 123.6 (60.0-200.0); Calcium 9.1 mg/dL (8.7-10.3); Non-African American GFR(CKD) 106.7 (60.0-200.0); Potassium 4.1 mmol/L (3.5-5.5)
== END | disposition home or self-care (01) ==
LOC: LABWHC1 11:03
PROVIDERS: ATTEND Internal Medicine
DX: T86.22 Heart transplant failure (principal); T86.23 Heart transplant infection; T86.290 Cardiac allograft vasculopathy; T86.21 Heart transplant rejection; E78.2 Mixed hyperlipidemia
CPT/HCPCS: 36415; 80048

== ENCOUNTER → 2021-03-31 | Outpatient (CLI) | payer OTHER ==
[2021-03-31 14:49] LABS: HCT 34.3 % (37.2-46.3); HGB 10.6 g/dL (12.0-15.0); MCH 32.7 pg (27.0-32.0); MCHC 30.9 g/dL (32.0-37.0); MCV 105.9 fL (80.0-97.0); Mean Platelet Volume 9.1 fL (9.5-12.2); Platelet Count 414 X 10*3/uL (140-440); RBC 3.24 X 10*6/uL (4.10-5.20); RDW 18.6 % (11.5-14.5); WBC 7.76 X 10*3/uL (4.50-10.00)
[2021-03-31 16:16] LABS: Basophils # (A) 0.03 X 10*3/uL (0.00-0.10); Basophils % (A) 0.4 %; Eosinophils # (A) 0 X 10*3/uL (0.04-0.35); Eosinophils % (A) 0 %; Lymphocytes # (A) 1.92 X 10*3/uL (0.90-5.00); Lymphocytes % (A) 24.7 %; Monocytes # (A) 0.36 X 10*3/uL (0.20-1.00); Monocytes % (A) 4.6 %; Neutrophils # (A) 5.24 X 10*3/uL (1.80-7.70); Neutrophils % (A) 67.6 %
[2021-03-31 16:17] LABS: Crenated RBC 2+; Macrocytosis (M) 2+
[2021-03-31 16:35] LABS: African American GFR (CKD) 123.6 (60.0-200.0); Anion Gap 10.3 mmol/L (4.00-12.00); Calcium 9.7 mg/dL (8.7-10.3); Carbon Dioxide 24.7 mmol/L (21.6-31.8); Non-African American GFR(CKD) 106.7 (60.0-200.0); Potassium 4.6 mmol/L (3.5-5.5)
== END | disposition home or self-care (01) ==
LOC: LABWHC1 08:47
PROVIDERS: ATTEND Internal Medicine
DX: T86.21 Heart transplant rejection (principal); T86.22 Heart transplant failure; T86.23 Heart transplant infection; T86.290 Cardiac allograft vasculopathy; E78.2 Mixed hyperlipidemia; I50.30 Unspecified diastolic (congestive) heart failure; Y71.8 Miscellaneous cardiovascular devices associated with adverse incidents, not elsewhere classified
CPT/HCPCS: 36415; 80048; 85025

== ENCOUNTER → 2021-04-08 | Outpatient (CLI) | payer OTHER ==
[2021-04-08 16:51] LABS: HCT 35.2 % (37.2-46.3); MCH 32.4 pg (27.0-32.0); MCHC 31.3 g/dL (32.0-37.0); MCV 103.8 fL (80.0-97.0); Platelet Count 389 X 10*3/uL (140-440); RBC 3.39 X 10*6/uL (4.10-5.20); RDW 18.3 % (11.5-14.5); WBC 8.62 X 10*3/uL (4.50-10.00)
[2021-04-08 19:05] LABS: Neutrophils % (M) 82 %
[2021-04-08 19:06] LABS: Basophils # (M) 0 X 10*3/uL (0.00-0.10); Eosinophils # (M) 0 X 10*3/uL (0.04-0.35); Lymphocytes # (M) 1.21 X 10*3/uL (0.90-5.00); Metamyelocytes % 2 % (0-0); Monocytes # (M) 0.17 X 10*3/uL (0.20-1.00); Neutrophils # (M) 7.07 X 10*3/uL (2.00-8.90)
[2021-04-09 00:28] LABS: African American GFR (CKD) 123.6 (60.0-200.0); Albumin 4.5 g/dL (3.80-4.90); Albumin/Globulin Ratio 1.96 (1.60-3.17); Anion Gap 11.7 mmol/L (4.00-12.00); Calcium 8.9 mg/dL (8.7-10.3); Carbon Dioxide 25.3 mmol/L (21.6-31.8); Globulin 2.3 g/dL (1.6-3.3); Magnesium 1.5 mg/dL (1.5-2.4); Non-African American GFR(CKD) 106.7 (60.0-200.0); Potassium 4.7 mmol/L (3.5-5.5); Total Bilirubin 0.5 mg/dL (0.2-1.2); Total Protein 6.8 g/dL (6.2-8.2)
== END | disposition home or self-care (01) ==
LOC: LABWHC1 09:35
PROVIDERS: ATTEND Internal Medicine
DX: E78.2 Mixed hyperlipidemia (principal); T86.21 Heart transplant rejection; T86.22 Heart transplant failure; T86.23 Heart transplant infection; T86.290 Cardiac allograft vasculopathy; Y82.8 Other medical devices associated with adverse incidents
CPT/HCPCS: 36415; 80053; 80197; 82550; 83735; 83880; 85025

== ENCOUNTER → 2021-04-15 | Outpatient (CLI) | payer OTHER ==
[2021-04-15 14:08] LABS: HCT 35.6 % (37.2-46.3); HGB 11.3 g/dL (12.0-15.0); MCH 33.5 pg (27.0-32.0); MCHC 31.7 g/dL (32.0-37.0); MCV 105.6 fL (80.0-97.0); Mean Platelet Volume 9.5 fL (9.5-12.2); Platelet Count 327 X 10*3/uL (140-440); RBC 3.37 X 10*6/uL (4.10-5.20); RDW 18.1 % (11.5-14.5); WBC 5.25 X 10*3/uL (4.50-10.00)
[2021-04-15 14:37] LABS: Basophils # (M) 0 X 10*3/uL (0.00-0.10); Eosinophils # (M) 0 X 10*3/uL (0.04-0.35); Lymphocytes # (M) 1.42 X 10*3/uL (0.90-5.00); Macrocytosis (M) 2+; Metamyelocytes % 1 % (0-0); Monocytes # (M) 0 X 10*3/uL (0.20-1.00); Neutrophils # (M) 3.78 X 10*3/uL (2.00-8.90); Neutrophils % (M) 72 %
[2021-04-16 09:29] LABS: African American GFR (CKD) 116.4 (60.0-200.0); Albumin 4.5 g/dL (3.80-4.90); Albumin/Globulin Ratio 2.05 (1.60-3.17); BUN/Creat Ratio 46.67 Ratio (12.00-20.00); Calcium 9.1 mg/dL (8.7-10.3); Globulin 2.2 g/dL (1.6-3.3); Magnesium 1.7 mg/dL (1.5-2.4); Non-African American GFR(CKD) 100.5 (60.0-200.0); Potassium 4.1 mmol/L (3.5-5.5); Total Bilirubin 0.4 mg/dL (0.2-1.2); Total Protein 6.7 g/dL (6.2-8.2)
== END | disposition home or self-care (01) ==
LOC: LABWHC1 10:15
PROVIDERS: ATTEND Internal Medicine
DX: E78.2 Mixed hyperlipidemia (principal); T86.22 Heart transplant failure; T86.290 Cardiac allograft vasculopathy; Y71.8 Miscellaneous cardiovascular devices associated with adverse incidents, not elsewhere classified
CPT/HCPCS: 36415; 80053; 82550; 83735; 83880; 85025

== ENCOUNTER → 2021-04-21 | Outpatient (CLI) | payer OTHER ==
[2021-04-21 20:30] LABS: HCT 35.6 % (37.2-46.3); MCH 33.4 pg (27.0-32.0); MCHC 30.9 g/dL (32.0-37.0); MCV 108.2 fL (80.0-97.0); Mean Platelet Volume 10.1 fL (9.5-12.2); Platelet Count 336 X 10*3/uL (140-440); RBC 3.29 X 10*6/uL (4.10-5.20); RDW 17.9 % (11.5-14.5); WBC 4.62 X 10*3/uL (4.50-10.00)
[2021-04-21 21:35] LABS: Basophils # (M) 0 X 10*3/uL (0.00-0.10); Eosinophils # (M) 0 X 10*3/uL (0.04-0.35); Lymphocytes # (M) 1.29 X 10*3/uL (0.90-5.00); Macrocytosis (M) 2+; Monocytes # (M) 0.18 X 10*3/uL (0.20-1.00); Neutrophils # (M) 3.14 X 10*3/uL (2.00-8.90); Neutrophils % (M) 68 %
[2021-04-21 22:01] LABS: African American GFR (CKD) 123.6 (60.0-200.0); Anion Gap 8.2 mmol/L (4.00-12.00); Calcium 8.9 mg/dL (8.7-10.3); Carbon Dioxide 29.8 mmol/L (21.6-31.8); Magnesium 1.7 mg/dL (1.5-2.4); Non-African American GFR(CKD) 106.7 (60.0-200.0); Potassium 4.7 mmol/L (3.5-5.5)
== END | disposition home or self-care (01) ==
LOC: LABWHC1 11:37
PROVIDERS: ATTEND Internal Medicine
DX: T86.21 Heart transplant rejection (principal); T86.290 Cardiac allograft vasculopathy; E78.2 Mixed hyperlipidemia; Y71.8 Miscellaneous cardiovascular devices associated with adverse incidents, not elsewhere classified
CPT/HCPCS: 36415; 80048; 83735; 85025

== ENCOUNTER → 2021-05-05 | Outpatient (CLI) | payer OTHER ==
[2021-05-05 18:01] LABS: ALT 29 U/L (8-44); AST 39 U/L (13-35); African American GFR (CKD) 124.3 (60.0-200.0); Albumin 4.4 g/dL (3.8-4.9); Albumin/Globulin Ratio 1.94 (1.60-3.17); Alkaline Phosphatase 71 U/L (41-126); BUN/Creat Ratio 43.29 Ratio (12.00-20.00); Blood Urea Nitrogen 21.3 mg/dL (9.0-27.0); Carbon Dioxide 23.5 mmol/L (21.6-31.8); Chloride 101 mmol/L (96-109); Globulin 2.2 g/dL (1.6-3.3); Glucose 88 mg/dL (70-110); Non-African American GFR(CKD) 107.3 (60.0-200.0); Potassium 4.7 mmol/L (3.5-5.5); Sodium 139 mmol/L (135-145); Total Bilirubin <0.20 mg/dL (0.30-1.20); Total Protein 6.6 g/dL (6.2-8.2)
== END | disposition home or self-care (01) ==
LOC: LABWHC1 09:44
PROVIDERS: ATTEND Internal Medicine
DX: T86.21 Heart transplant rejection (principal); T86.22 Heart transplant failure; T86.23 Heart transplant infection; T86.290 Cardiac allograft vasculopathy; E78.2 Mixed hyperlipidemia; I50.30 Unspecified diastolic (congestive) heart failure; Z94.1 Heart transplant status; Y71.8 Miscellaneous cardiovascular devices associated with adverse incidents, not elsewhere classified
CPT/HCPCS: 36415; 80053

== ENCOUNTER → 2021-05-12 | Outpatient (CLI) | payer OTHER ==
[2021-05-12 19:54] LABS: HCT 35.4 % (37.2-46.3); HGB 11.4 g/dL (12.0-15.0); MCH 33.7 pg (27.0-32.0); MCHC 32.2 g/dL (32.0-37.0); MCV 104.7 fL (80.0-97.0); Mean Platelet Volume 9.9 fL (9.5-12.2); Platelet Count 312 X 10*3/uL (140-440); RBC 3.38 X 10*6/uL (4.10-5.20); RDW 16.8 % (11.5-14.5); WBC 3.46 X 10*3/uL (4.50-10.00)
[2021-05-12 20:37] LABS: Basophils # (M) 0 X 10*3/uL (0.00-0.10); Eosinophils # (M) 0 X 10*3/uL (0.04-0.35); Lymphocytes # (M) 1.59 X 10*3/uL (0.90-5.00); Neutrophils # (M) 1.76 X 10*3/uL (2.00-8.90); Neutrophils % (M) 51 %
[2021-05-13 13:14] LABS: ALT 26 U/L (8-44); AST 28 U/L (13-35); African American GFR (CKD) 128.7 (60.0-200.0); Albumin 4.4 g/dL (3.8-4.9); Albumin/Globulin Ratio 1.98 (1.60-3.17); Alkaline Phosphatase 70 U/L (41-126); BUN/Creat Ratio 34.76 Ratio (12.00-20.00); Blood Urea Nitrogen 15.4 mg/dL (9.0-27.0); Carbon Dioxide 18.9 mmol/L (21.6-31.8); Chloride 101 mmol/L (96-109); Creatine Kinase 32 U/L (26-186); Globulin 2.2 g/dL (1.6-3.3); Glucose 118 mg/dL (70-110); Magnesium 1.7 mg/dL (1.5-2.4); Potassium 3.9 mmol/L (3.5-5.5); Sodium 141 mmol/L (135-145); Total Bilirubin <0.20 mg/dL (0.30-1.20); Total Protein 6.6 g/dL (6.2-8.2)
== END | disposition home or self-care (01) ==
LOC: LABWHC1 11:06
PROVIDERS: ATTEND Internal Medicine
DX: E78.2 Mixed hyperlipidemia (principal); T86.20 Unspecified complication of heart transplant; T86.21 Heart transplant rejection; T86.22 Heart transplant failure; T86.23 Heart transplant infection; T86.290 Cardiac allograft vasculopathy
CPT/HCPCS: 36415; 80053; 82550; 83735; 83880; 85025

== ENCOUNTER → 2021-05-21 | Outpatient (CLI) | payer OTHER ==
[2021-05-21 18:31] LABS: HCT 39.6 % (37.2-46.3); HGB 12.3 g/dL (12.0-15.0); MCH 32.9 pg (27.0-32.0); MCHC 31.1 g/dL (32.0-37.0); MCV 105.9 fL (80.0-97.0); Mean Platelet Volume 9.5 fL (9.5-12.2); Platelet Count 308 X 10*3/uL (140-440); RBC 3.74 X 10*6/uL (4.10-5.20); RDW 16.8 % (11.5-14.5); WBC 2.97 X 10*3/uL (4.50-10.00)
[2021-05-21 19:30] LABS: Basophils # (M) 0.03 X 10*3/uL (0.00-0.10); Eosinophils # (M) 0 X 10*3/uL (0.04-0.35); Lymphocytes # (M) 1.07 X 10*3/uL (0.90-5.00); Metamyelocytes % 1 % (0-0); Monocytes # (M) 0.09 X 10*3/uL (0.20-1.00); Neutrophils # (M) 1.75 X 10*3/uL (2.00-8.90); Neutrophils % (M) 59 %
[2021-05-21 21:41] LABS: African American GFR (CKD) 119.8 (60.0-200.0); Anion Gap 16.6 mmol/L (4.00-12.00); BUN/Creat Ratio 47.91 Ratio (12.00-20.00); Blood Urea Nitrogen 26.4 mg/dL (9.0-27.0); Carbon Dioxide 24.2 mmol/L (21.6-31.8); Non-African American GFR(CKD) 103.3 (60.0-200.0); Potassium 4.1 mmol/L (3.5-5.5)
== END | disposition home or self-care (01) ==
LOC: LABWHC1 11:01
PROVIDERS: ATTEND Internal Medicine
DX: T86.21 Heart transplant rejection (principal); T86.22 Heart transplant failure; T86.23 Heart transplant infection; T86.290 Cardiac allograft vasculopathy; I50.30 Unspecified diastolic (congestive) heart failure; E78.2 Mixed hyperlipidemia; Z94.1 Heart transplant status; Y71.2 Prosthetic and other implants, materials and accessory cardiovascular devices associated with adverse incidents
CPT/HCPCS: 36415; 80048; 85025

== ENCOUNTER → 2021-06-03 | Outpatient (CLI) | payer OTHER ==
[2021-06-03 19:50] LABS: HGB 11.6 g/dL (12.0-15.0); MCH 32.8 pg (27.0-32.0); MCHC 30.5 g/dL (32.0-37.0); MCV 107.3 fL (80.0-97.0); Mean Platelet Volume 9.5 fL (9.5-12.2); Platelet Count 350 X 10*3/uL (140-440); RBC 3.54 X 10*6/uL (4.10-5.20); RDW 16.6 % (11.5-14.5); WBC 2.67 X 10*3/uL (4.50-10.00)
[2021-06-03 20:06] LABS: ALT 23 U/L (8-44); AST 28 U/L (13-35); African American GFR (CKD) 94.2 (60.0-200.0); Albumin 4.4 g/dL (3.8-4.9); Albumin/Globulin Ratio 1.91 (1.60-3.17); Alkaline Phosphatase 77 U/L (41-126); Blood Urea Nitrogen 32.8 mg/dL (9.0-27.0); Calcium 9.2 mg/dL (8.7-10.3); Carbon Dioxide 27.5 mmol/L (21.6-31.8); Chloride 95 mmol/L (96-109); Creatine Kinase 36 U/L (26-186); Globulin 2.3 g/dL (1.6-3.3); Glucose 59 mg/dL (70-110); Magnesium 2.6 mg/dL (1.5-2.4); Non-African American GFR(CKD) 81.3 (60.0-200.0); Potassium 3.7 mmol/L (3.5-5.5); Sodium 137 mmol/L (135-145); Total Bilirubin <0.20 mg/dL (0.30-1.20); Total Protein 6.7 g/dL (6.2-8.2)
[2021-06-03 20:28] LABS: Basophils # (M) 0.03 X 10*3/uL (0.00-0.10); Eosinophils # (M) 0 X 10*3/uL (0.04-0.35); Lymphocytes # (M) 1.68 X 10*3/uL (0.90-5.00); Metamyelocytes % 2 % (0-0); Monocytes # (M) 0.03 X 10*3/uL (0.20-1.00); Myelocytes % 1 % (0-0); Neutrophils # (M) 0.85 X 10*3/uL (2.00-8.90); Neutrophils % (M) 32 %
[2021-06-04 14:39] LABS: CMV DNA Qualitative Not detected (Not detected); CMV DNA, Quantitative <50 IU/mL (<50); LOG CMV Copies/mL <126 Copies/mL (<126); Log Cytomegalovirus <1.70 (<1.70)
== END | disposition home or self-care (01) ==
LOC: LABWHC1 10:27
PROVIDERS: ATTEND Internal Medicine
DX: T86.21 Heart transplant rejection (principal); T86.22 Heart transplant failure; T86.23 Heart transplant infection; T86.290 Cardiac allograft vasculopathy; E78.2 Mixed hyperlipidemia; I50.30 Unspecified diastolic (congestive) heart failure; Z94.1 Heart transplant status; Y71.2 Prosthetic and other implants, materials and accessory cardiovascular devices associated with adverse incidents
CPT/HCPCS: 36415; 80053; 82550; 83735; 85025; 87497

== ENCOUNTER → 2021-06-11 | Outpatient (CLI) | payer OTHER ==
[2021-06-11 20:11] LABS: HCT 37.7 % (37.2-46.3); HGB 11.4 g/dL (12.0-15.0); MCH 32.4 pg (27.0-32.0); MCHC 30.2 g/dL (32.0-37.0); MCV 107.1 fL (80.0-97.0); Mean Platelet Volume 9.4 fL (9.5-12.2); Platelet Count 409 X 10*3/uL (140-440); RBC 3.52 X 10*6/uL (4.10-5.20); RDW 15.9 % (11.5-14.5); WBC 3.38 X 10*3/uL (4.50-10.00)
[2021-06-11 20:40] LABS: Basophils # (M) 0.07 X 10*3/uL (0.00-0.10); Eosinophils # (M) 0.03 X 10*3/uL (0.04-0.35); Lymphocytes # (M) 1.05 X 10*3/uL (0.90-5.00); Myelocytes % 1 % (0-0); Neutrophils # (M) 2.06 X 10*3/uL (2.00-8.90); Neutrophils % (M) 61 %; Promyelocytes % 1 % (0-0)
== END | disposition home or self-care (01) ==
LOC: LABWHC1 12:10
PROVIDERS: ATTEND Internal Medicine
DX: T86.21 Heart transplant rejection (principal); T86.22 Heart transplant failure; T86.23 Heart transplant infection; T86.290 Cardiac allograft vasculopathy; E78.2 Mixed hyperlipidemia; I50.30 Unspecified diastolic (congestive) heart failure; Z94.1 Heart transplant status; Y71.8 Miscellaneous cardiovascular devices associated with adverse incidents, not elsewhere classified
CPT/HCPCS: 36415; 85025

== ENCOUNTER 2021-06-16 14:59 | Observation (INO) | payer OTHER ==
[2021-06-16 18:11] LABS: Anisocytosis Slight; HCT 38.7 % (34.0-46.0); HGB 12.6 gm/dL (11.4-16.0); MCH 33.7 pg (25.0-35.0); MCHC 32.6 g/dL (31.0-37.0); MCV 103.5 fL (80.0-100.0); Macrocytosis Moderate; Mean Platelet Volume 6.8; Platelet Count 441 k/uL (150-450); RBC 3.74 m/uL (3.80-5.40); RDW 16.6 % (11.5-15.5); WBC 4.1 k/uL (3.8-10.6)
[2021-06-16 18:15] LABS: ALT 18 U/L (4-34); AST 29 U/L (14-36); African American GFR (CKD) >90 (>60 ml/min/1.73 sqM); Albumin 4.2 g/dL (3.5-5.0); Alkaline Phosphatase 79 U/L (38-126); Anion Gap 7 mmol/L; Blood Urea Nitrogen 31 mg/dL (7-17); Calcium 9.6 mg/dL (8.4-10.2); Carbon Dioxide 30 mmol/L (22-30); Chloride 96 mmol/L (98-107); Glucose 93 mg/dL (74-99); Magnesium 2.2 mg/dL (1.6-2.3); Non-African American GFR(CKD) >90 (>60 ml/min/1.73 sqM); Potassium 4.2 mmol/L (3.5-5.1); Sodium 133 mmol/L (137-145); Total Bilirubin 0.4 mg/dL (0.2-1.3)
--- NOTE | 2021-06-16 18:22 | XR ---
EXAMINATION TYPE: XR chest 1V portable DATE OF EXAM: 06/16/2021 COMPARISON: 05/14/2020 HISTORY: Syncope TECHNIQUE: FINDINGS: Heart is normal. Lungs are clear of infiltrate. There is no heart failure. There is chest l jb. There are sternal wires. Bony thorax is intact. There is no evidence of pleural effusion. IMPRESSION: No active cardiopulmonary disease. There is clearing of the right middle lobe pneumonia c ompared to old exam.
[2021-06-16 18:40] LABS: Band Neutrophils % 1 %; Lymphocytes # (M) 0.82 k/uL (1.0-4.8); Monocytes # (M) 0.29 k/uL (0-1.0); Neutrophils % (M) 72 %; Nucleated Red Blood Cells 0 /100 WBC (0-0); Total Cells Counted 100
--- NOTE | 2021-06-16 18:48 | CT ---
EXAMINATION TYPE: CT brain wo con DATE OF EXAM: 06/16/2021 COMPARISON: 11/18/2016 HISTORY: Fall, history of strokes. Heart transplant January 2021. CT DLP: 1098.4 mGycm Automated exposure control for dose reduction was used. Images obtained of the brain without contrast. There is 4.5 cm area of hypodensity in the right posterior frontal lobe and right parietal lobe relat ed to old infarct. There is no mass effect nor midline shift. There is no sign of intracranial hemorr angeline. The calvarium is intact. The skull base is intact. IMPRESSION: There is old large right frontal and parietal cortical infarct without change compared to old exam. N o acute intracranial abnormality.
--- NOTE | 2021-06-16 21:00 | ED ---
Fall HPI - General Chief Complaint: Fall Stated Complaint: Fall, Recent Heart Transplant Time Seen by Provider: 06/16/21 16:50 Source: patient Mode of arrival: ambulatory - History of Present Illness Initial Comments: Patient states that she had a trip and fall. She landed on her chest. She has some chest pain. She had a recent cardiac transplant. She was advised to come to the hospital for observation. She is little tachycardic. She has pain in the middle of the chest. She did not hit her head. She did not lose conscious. She has no neck pain or stiffness. She has no nausea or vomiting. - Related Data Home Medications Medication Instructions Recorded Confirmed Aspirin EC [Ecotrin Low Dose] 81 mg PO DAILY 05/14/20 06/16/21 Nortriptyline [Pamelor] 100 mg PO HS 05/14/20 06/16/21 Acetaminophen Tab [Tylenol Tab] 500 mg PO Q6H PRN 06/16/21 06/16/21 Alendronate Sodium [Fosamax] 70 mg PO TH 06/16/21 06/16/21 Ascorbic Acid [Vitamin C] 500 mg PO BID 06/16/21 06/16/21 Calcium Citrate/Vitamin D3 1 tab PO TID-W/MEALS 06/16/21 06/16/21 [Citracal + D Maximum Caplet] Citalopram Hydrobromide [CeleXA] 10 mg PO DAILY 06/16/21 06/16/21 Levothyroxine Sodium [Synthroid] 50 mcg PO DAILY 06/16/21 06/16/21 Magnesium Oxide 800 mg PO BID-W/MEALS 06/16/21 06/16/21 Multivitamins, Thera [Multivitamin 1 tab PO DAILY 06/16/21 06/16/21 (formulary)] Mycophenolate Mofetil [Cellcept] 500 mg PO BID 06/16/21 06/16/21 Nystatin 100,000 Unit/ml Susp 5 ml PO QID 06/16/21 06/16/21 [Mycostatin Oral Susp] Omeprazole 20 mg PO AC-BRKFST 06/16/21 06/16/21 Pravastatin Sodium [Pravachol] 40 mg PO HS 06/16/21 06/16/21 Sulfamethox-Tmp 800-160Mg [Bactrim 1 tab PO MOWEFR 06/16/21 06/16/21 DS 800-160 mg] Tacrolimus [Prograf] 3 mg PO DAILY 06/16/21 06/16/21 Tacrolimus [Prograf] 4 mg PO HS 06/16/21 06/16/21 Vitamin E 400 unit PO BID 06/16/21 06/16/21 hydroCHLOROthiazide [Hydrodiuril] 25 mg PO DAILY 06/16/21 06/16/21 predniSONE 5 mg PO HS 06/16/21 06/16/21 predniSONE 7.5 mg PO DAILY 06/16/21 06/16/21 Allergies Allergy/AdvReac Type Severity Reaction Status Date / Time influenza virus vaccine, Allergy Unknown Verified 06/16/21 18:28 specific mold Allergy Unknown Verified 06/16/21 18:28 mushroom Allergy Unknown Verified 06/16/21 18:28 phenobarbital Allergy Unknown Verified 06/16/21 18:28 Childhood EGG WHITES Allergy Rash/Hives Uncoded 06/16/21 16:16 Review of Systems ROS Statement: Those systems with pertinent positive or pertinent negative responses have been documented in the HPI. ROS Other: All systems not noted in ROS Statement are negative. 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 Past Anesthesia/Blood Transfusion Reactions: No Reported Reaction Past Psychological History: No Psychological Hx Reported Smoking Status: Former smoker - Past Family History Father Family Medical History: No Reported History Additional Family Medical History / Comment(s): Father is living. Mother Family Medical History: No Reported History Additional Family Medical History / Comment(s): Mother is living and healthy General Exam Limitations: no limitations General appearance: alert, in no apparent distress Head exam: Present: atraumatic, normocephalic, normal inspection Eye exam: Present: normal appearance, PERRL, EOMI. Absent: scleral icterus, conjunctival injection, periorbital swelling ENT exam: Present: normal exam, mucous membranes moist Neck exam: Present: normal inspection. Absent: tenderness, meningismus, lymphadenopathy Respiratory exam: Present: normal lung sounds bilaterally. Absent: respiratory distress, wheezes, rales, rhonchi, stridor Cardiovascular Exam: Present: regular rate, normal rhythm, normal heart sounds. Absent: systolic murmur, diastolic murmur, rubs, gallop, clicks GI/Abdominal exam: Present: soft, normal bowel sounds. Absent: distended, tenderness, guarding, rebound, rigid Extremities exam: Present: normal inspection, full ROM, normal capillary refill. Absent: tenderness, pedal edema, joint swelling, calf tenderness Back exam: Present: normal inspection Neurological exam: Present: alert, oriented X3, CN II-XII intact Psychiatric exam: Present: normal affect, normal mood Skin exam: Present: warm, dry, intact, normal color. Absent: rash Course Vital Signs 06/16/21 06/16/21 16:16 20:02 Temperature 97.2 F L 98.6 F Pulse Rate 102 H 102 H Respiratory 20 18 Rate Blood Pressure 152/97 148/104 O2 Sat by Pulse 95 100 Oximetry Medical Decision Making - Medical Decision Making Patient presents with chest pain after fall. Initial troponin is a little elevated. I am ordering an echocardiogram and consult to cardiology. Patient will be admitted for observation. - Lab Data Result diagrams: 06/16/21 17:57 06/16/21 17:57 Lab Results 06/16/21 06/16/21 06/16/21 Range/Units 17:57 17:57 17:57 WBC 4.1 (3.8-10.6) k/uL RBC 3.74 L (3.80-5.40) m/uL Hgb 12.6 (11.4-16.0) gm/dL Hct 38.7 (34.0-46.0) % MCV 103.5 H (80.0-100.0) fL MCH 33.7 (25.0-35.0) pg MCHC 32.6 (31.0-37.0) g/dL RDW 16.6 H (11.5-15.5) % Plt Count 441 (150-450) k/uL MPV 6.8 Neutrophils % (Manual) 72 % Band Neuts % (Manual) 1 % Lymphocytes % (Manual) 20 % Monocytes % (Manual) 7 % Neutrophils # (Manual) 2.90 (1.3-7.7) k/uL Lymphocytes # (Manual) 0.82 L (1.0-4.8) k/uL Monocytes # (Manual) 0.29 (0-1.0) k/uL Nucleated RBCs 0 (0-0) /100 WBC Manual Slide Review Performed Anisocytosis Slight Macrocytosis Moderate Sodium 133 L (137-145) mmol/L Potassium 4.2 (3.5-5.1) mmol/L Chloride 96 L (98-107) mmol/L Carbon Dioxide 30 (22-30) mmol/L Anion Gap 7 mmol/L BUN 31 H (7-17) mg/dL Creatinine 0.65 (0.52-1.04) mg/dL Est GFR (CKD-EPI)AfAm >90 (>60 ml/min/1.73 sqM) Est GFR (CKD-EPI)NonAf >90 (>60 ml/min/1.73 sqM) Glucose 93 (74-99) mg/dL Calcium 9.6 (8.4-10.2) mg/dL Magnesium 2.2 (1.6-2.3) mg/dL Total Bilirubin 0.4 (0.2-1.3) mg/dL AST 29 (14-36) U/L ALT 18 (4-34) U/L Alkaline Phosphatase 79 (38-126) U/L Troponin I 0.068 H* (0.000-0.034) ng/mL Total Protein 7.0 (6.3-8.2) g/dL Albumin 4.2 (3.5-5.0) g/dL 06/16/21 20:59 Twelve-lead EKG shows ventricular rate 105 bpm, normal MA interval, there is a right bundle branch block, no ST elevation or depression, interpreted by me as sinus tachycardia. Disposition Clinical Impression: Fall Disposition: ADMITTED IP TO THIS HOSP Condition: Fair Referrals: Christopher Winchester MD [Primary Care Provider] - 1-2 days
[2021-06-16] MEDS ORDERED: NALOXONE 0.4 MG/ML 1 ML VIAL IV PRN (21:01)
[2021-06-16] MEDS ORDERED: MORPHINE SULFATE 4 MG/ML SYRINGE IV PRN (21:01)
[2021-06-16] MEDS ORDERED: ONDANSETRON 4 MG/2 ML VIAL IVP PRN (21:01)
[2021-06-16] MEDS ORDERED: DOCUSATE 100 MG CAP PO PRN (21:01)
[2021-06-16] MEDS ORDERED: TEMAZEPAM 15 MG CAP PO PRN (21:01)
[2021-06-16] MEDS ORDERED: traMADol 50 MG TAB PO PRN (21:01)
[2021-06-16] MEDS ORDERED: SULFAMETHOX-TMP 800-160MG 1 EACH TAB PO SCH ×2 (21:15→22:00)
[2021-06-16] MEDS: NYSTATIN 100,000 UNIT/ML SUSP 500,000 UNIT/5 ML CUP PO SCH (23:39)
[2021-06-17 00:32] VITALS: TEMP 98.2
[2021-06-17] MEDS ORDERED: LEVOTHYROXINE 50 MCG TAB PO SCH (06:30)
[2021-06-17] MEDS ORDERED: CALCIUM CARB-VIT D 500 MG-5 MCG TAB PO SCH (07:30)
[2021-06-17] MEDS ORDERED: MAGNESIUM OXIDE 400 MG TAB PO SCH (07:30)
[2021-06-17] MEDS ORDERED: PANTOPRAZOLE 40 MG TABLET PO SCH (07:30)
[2021-06-17 08:33] VITALS: BP 138/96; PULSE 86; RESP 18
[2021-06-17] MEDS: MULTIVITAMINS, THERA 1 EACH TAB PO SCH ×2 (08:34→10:02)
[2021-06-17] MEDS: hydroCHLOROthiazide 25 MG TAB PO SCH ×2 (08:34→10:02)
[2021-06-17] MEDS: ASCORBIC ACID 500 MG TAB PO SCH ×2 (08:34→10:02)
[2021-06-17] MEDS: CITALOPRAM HYDROBROMIDE 10 MG TAB PO SCH ×2 (08:34→10:02)
[2021-06-17] MEDS: ASPIRIN 81 MG PO SCH ×2 (08:34→10:02)
[2021-06-17] MEDS ORDERED: predniSONE 2.5 MG TAB PO SCH (09:00)
[2021-06-17] MEDS ORDERED: VITAMIN E (DL,TOCOPHERYL ACET) 400 UNIT (180 MG) CAP PO SCH (09:00)
[2021-06-17] MEDS ORDERED: TACROLIMUS 1 MG CAP PO SCH ×2 (09:00→21:00)
--- NOTE | 2021-06-17 09:46 | ECHOF ---
Referral Reason:chest pain MEASUREMENTS -------- HEIGHT: 152.4 cm WEIGHT: 55.8 kg BP: 126/91 RVIDd: 3.4 cm (< 3.3) IVSd: 1.5 cm (0.6 - 1.1) LVIDd: 3.9 cm (3.9 - 5.3) LVPWd: 1.4 cm (0.6 - 1.1) IVSs: 1.5 cm LVIDs: 2.8 cm LVPWs: 1.5 cm LAESV Index (A-L): 32.02 ml/m Ao Diam: 3.0 cm (2.0 - 3.7) AV Cusp: 2.0 cm (1.5 - 2.6) MV EXCURSION: 10.595 mm (> 18.000) MV EF SLOPE: 61 mm/s (70 - 150) EPSS: 1.6 cm AR PHT: 536 ms RAP: 3.00 mmHg RVSP: 27.01 mmHg FINDINGS -------- Sinus rhythm. This was a technically adequate study. S/P heart implant ( January 2021) The left ventricular size is normal. There is moderate concentric left ventricular hypertrophy. O verall left ventricular systolic function is low-normal with, an EF between 50 - 55 %. The right ventricle is mildly enlarged. LA is midly dilated 29-33ml/m2. The right atrial size is normal. Interatrial and interventricular septum intact. There is [id number] aortic regurgitation. There is no evidence of aortic stenosis. Mild mitral regurgitation is present. Mild tricuspid regurgitation present. There is no evidence of pulmonary hypertension. The right v entricular systolic pressure, as measured by Doppler, is 27.01mmHg. There is no pulmonic regurgitation present. The aortic root size is normal. IVC Not well visulized. There is a small pericardial effusion with echodense, fibrinous material which is located near the ri ght ventricle. There is no tamponade physiology noted. CONCLUSIONS -------- 1. S/P heart implant ( January 2021) 2. The left ventricular size is normal. 3. There is moderate concentric left ventricular hypertrophy. 4. Overall left ventricular systolic function is low-normal with, an EF between 50 - 55 %. 5. The right ventricle is mildly enlarged. 6. LA is midly dilated 29-33ml/m2. 7. There is jvsv-bw-[id number] aortic regurgitation. 8. Mild mitral regurgitation is present. 9. Mild tricuspid regurgitation present. 10. There is a small pericardial effusion with echodense, fibrinous material which is located near th e right ventricle. There is no tamponade physiology noted. YOKE PRESSER: Gayle Thomson RDCS
[2021-06-17] MEDS: NYSTATIN 100,000 UNIT/ML SUSP 500,000 UNIT/5 ML CUP PO SCH (10:00)
--- NOTE | 2021-06-17 12:51 | P.CRDCN ---
History of Present Illness History of present illness: This is a 60-year-old female with a history of Heart transplant in January 2021, congestive heart failure, EF <20% in 05/2020, Nonischemic cardiomyopathy, LBBB, 2 CVA most recent in July 2020, hyperlipidemia, hypertension, hypothyroidism, former smoking. She follows with Dr. Kevin Molina at [facility]. She presented to the hospital after a fall on Wednesday night. She states she was getting out of bed, and stepped on one of her dogs toys, she slipped and fell to the ground. She caught herself with her hands, she hit her head on the coffee table. She states she called her clinical esthetician's office on Wednesday and they wanted her to get evaluated in the emergency department. She has some mild chest discomfort with palpation at her scars from her surgery. She denies any shortness of breath, palpitations, nausea, vomiting, lightheadedness, dizziness, presyncope or syncope. She denies any symptoms of orthopnea or PND. She denies history of diabetes. She denies any smoking or alcohol. DIAGNOSTICS EKG reveals sinus tachycardia, heart rate 105, right bundle-branch block. Telemetry tracings indicate sinus mechanism, heart rate in the 80s/90s. Chest xray report reveals clearing of pneumonia compared to old exam. Laboratory reviewed, 0.06, 0.05, 0.07. WBC 4.1, hemoglobin 12.6, platelets 441, sodium 133, potassium 4.2, BUN 31, serum crit 0.6, magnesium 2.2, COVID-19 PCR negative. Current medications include aspirin milligrams daily, pravastatin 40 mg daily, hydrochlorothiazide 25 mg daily, Prograf, CellCept, prednisone, Bactrim, Synthroid REVIEW OF SYSTEMS At the time of my exam: CONSTITUTIONAL: Denies fever or chills. CARDIOVASCULAR: Denies chest pain, shortness of breath, orthopnea, PND or palpitations. RESPIRATORY: Denies cough. GASTROINTESTINAL: Denies abdominal pain, diarrhea, constipation, nausea or vomiting. MUSCULOSKELETAL: Denies myalgias. NEUROLOGIC: Denies numbness, tingling, headacbe or weakness. ENDOCRINE: Denies fatigue, weight change, polydipsia or polyurina. GENITOURINARY: Denies burning, hematuria or urgency with micturation. HEMATOLOGIC: Denies history of anemia or bleeding. PHYSICAL EXAMINATION Blood pressure 126/91, heart rate 89, afebrile, saturations 99% on room air CONSTITUTIONAL: No apparent distress. HEENT: Head is normocephalic. Pupils are equal, round. Sclerae anicteric. Mucous membranes of the mouth are moist. No JVD. No carotid bruit. CHEST EXAMINATION: Lungs are clear to auscultation. Mild chest wall tenderness is noted on palpation HEART EXAMINATION: Regular rate and rhythm. S1, S2 heard. Systolic murmur noted. ABDOMEN: Soft, nontender. Positive bowel sounds. EXTREMITIES: 2+ peripheral pulses, no lower extremity edema and no calf tenderness. NEUROLOGIC EXAMINATION: Patient is awake, alert and oriented x3. ASSESSMENT Mechanical Fall Elevated troponin, not indicative of acute coronary syndrome History of heart transplant in January 2021 History of congestive heart failure History of 2 CVAs most recent July 2020 Hypertension Hyperlipidemia Hypothyroidism PLAN Echocardiogram revealed an EF of 5055 percent, moderate concentric left ventricular hypertrophy, mild to moderate aortic regurgitation, mild mitral regurgitation, mild tricuspid regurgitation. Small pericardial effusion with echodense fibrinous material located near the right ventricle, no tamponade physiology noted. Echocardiogram revealed with Dr. Julien. 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 Continue all home medications. Nurse Practitioner note has been reviewed, I agree with a documented findings and plan of care. Patient was seen and examined. 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 Heart tr ansplant February 24, 2021 Past Anesthesia/Blood Transfusion Reactions: No Reported Reaction Past Psychological History: No Psychological Hx Reported Additional Psychological History / Comment(s): Pt resides with her spouse. She is independent. 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 Smoking Status: Former smoker Past Alcohol Use History: Occasional Additional Past Alcohol Use History / Comment(s): Pt started smoking in 1978 and quit in 2009. Past Drug Use History: None Reported - Past Family History Father Family Medical History: No Reported History Additional Family Medical History / Comment(s): Father is living. Mother Family Medical History: No Reported History Additional Family Medical History / Comment(s): Mother is living and healthy Medications and Allergies Home Medications Medication Instructions Recorded Confirmed Type Aspirin EC [Ecotrin Low Dose] 81 mg PO DAILY 05/14/20 06/16/21 History Nortriptyline [Pamelor] 100 mg PO HS 05/14/20 06/16/21 History Acetaminophen Tab [Tylenol Tab] 500 mg PO Q6H PRN 06/16/21 06/16/21 History Alendronate Sodium [Fosamax] 70 mg PO TH 06/16/21 06/16/21 History Ascorbic Acid [Vitamin C] 500 mg PO BID 06/16/21 06/16/21 History Calcium Citrate/Vitamin D3 1 tab PO TID-W/MEALS 06/16/21 06/16/21 History [Citracal + D Maximum Caplet] Citalopram Hydrobromide [CeleXA] 10 mg PO DAILY 06/16/21 06/16/21 History Levothyroxine Sodium [Synthroid] 50 mcg PO DAILY 06/16/21 06/16/21 History Magnesium Oxide 800 mg PO BID-W/MEALS 06/16/21 06/16/21 History Multivitamins, Thera [Multivitamin 1 tab PO DAILY 06/16/21 06/16/21 History (formulary)] Mycophenolate Mofetil [Cellcept] 500 mg PO BID 06/16/21 06/16/21 History Nystatin 100,000 Unit/ml Susp 5 ml PO QID 06/16/21 06/16/21 History [Mycostatin Oral Susp] Omeprazole 20 mg PO AC-BRKFST 06/16/21 06/16/21 History Pravastatin Sodium [Pravachol] 40 mg PO HS 06/16/21 06/16/21 History Sulfamethox-Tmp 800-160Mg [Bactrim 1 tab PO MOWEFR 06/16/21 06/16/21 History DS 800-160 mg] Tacrolimus [Prograf] 3 mg PO DAILY 06/16/21 06/16/21 History Tacrolimus [Prograf] 4 mg PO HS 06/16/21 06/16/21 History Vitamin E 400 unit PO BID 06/16/21 06/16/21 History hydroCHLOROthiazide [Hydrodiuril] 25 mg PO DAILY 06/16/21 06/16/21 History predniSONE 5 mg PO HS 06/16/21 06/16/21 History predniSONE 7.5 mg PO DAILY 06/16/21 06/16/21 History Allergies Allergy/AdvReac Type Severity Reaction Status Date / Time influenza virus vaccine, Allergy Unknown Verified 06/16/21 18:28 specific mold Allergy Unknown Verified 06/16/21 18:28 mushroom Allergy Unknown Verified 06/16/21 18:28 phenobarbital Allergy Unknown Verified 06/16/21 18:28 Childhood EGG WHITES Allergy Rash/Hives Uncoded 06/16/21 16:16 Physical Exam Vitals: Vital Signs Temp Pulse Pulse Resp BP BP Pulse Ox 06/17/21 04:00 89 16 126/91 97 06/17/21 00:00 98.2 F 96 20 141/89 97 06/16/21 21:24 96 18 133/85 98 06/16/21 20:02 98.6 F 102 H 18 148/104 100 06/16/21 16:16 97.2 F L 102 H 20 152/97 95 Intake and Output 06/16/21 06/17/21 06/17/21 22:59 06:59 14:59 Other: # Voids 1 1 Weight 50.349 kg 56 kg Results 06/16/21 17:57 06/16/21 17:57 Cardiac Enzymes 06/16/21 06/16/21 06/16/21 Range/Units 17:57 17:57 21:30 AST 29 (14-36) U/L Troponin I 0.068 H* 0.065 H* (0.000-0.034) ng/mL 06/17/21 Range/Units 00:41 AST (14-36) U/L Troponin I 0.070 H* (0.000-0.034) ng/mL CBC 06/16/21 Range/Units 17:57 WBC 4.1 (3.8-10.6) k/uL RBC 3.74 L (3.80-5.40) m/uL Hgb 12.6 (11.4-16.0) gm/dL Hct 38.7 (34.0-46.0) % Plt Count 441 (150-450) k/uL Comprehensive Metabolic Panel 06/16/21 Range/Units 17:57 Sodium 133 L (137-145) mmol/L Potassium 4.2 (3.5-5.1) mmol/L Chloride 96 L (98-107) mmol/L Carbon Dioxide 30 (22-30) mmol/L BUN 31 H (7-17) mg/dL Creatinine 0.65 (0.52-1.04) mg/dL Glucose 93 (74-99) mg/dL Calcium 9.6 (8.4-10.2) mg/dL AST 29 (14-36) U/L ALT 18 (4-34) U/L Alkaline Phosphatase 79 (38-126) U/L Total Protein 7.0 (6.3-8.2) g/dL Albumin 4.2 (3.5-5.0) g/dL Current Medications Generic Name Dose Route Start Last Admin Trade Name Freq PRN Reason Stop Dose Admin Ascorbic Acid 500 mg 06/17/21 09:00 Ascorbic Acid 500 Mg Tab PO BID [facility] Aspirin 81 mg 06/17/21 09:00 Aspirin 81 Mg PO DAILY [facility] Calcium Carbonate 1 each 06/17/21 07:30 06/17/21 06:30 Calcium Carb-Vit D 500 Mg-5 Mcg Tab PO 1 each BID-W/MEALS ANGELITA Administration Citalopram Hydrobromide 10 mg 06/17/21 09:00 Citalopram Hydrobromide 10 Mg Tab PO DAILY [facility] Docusate Sodium 100 mg 06/16/21 21:01 Docusate 100 Mg Cap PO BID PRN Constipation Hydrochlorothiazide 25 mg 06/17/21 09:00 Hydrochlorothiazide 25 Mg Tab PO DAILY [facility] Levothyroxine Sodium 50 mcg 06/17/21 06:30 06/17/21 06:29 Levothyroxine 50 Mcg Tab PO 50 mcg DAILY@0630 ANGELITA Administration Magnesium Oxide 800 mg 06/17/21 07:30 06/17/21 06:29 Magnesium Oxide 400 Mg Tab PO 800 mg BID-W/MEALS ANGELITA Administration Morphine Sulfate 4 mg 06/16/21 21:01 Morphine Sulfate 4 Mg/Ml Syringe IV Q4HR PRN Severe Pain Multivitamins 1 each 06/17/21 09:00 Multivitamins, Thera 1 Each Tab PO DAILY [facility] Mycophenolate Mofetil 500 mg 06/17/21 09:00 Mycophenolate Mofetil 500 Mg Tab PO BID [facility] Naloxone HCl 0.2 mg 06/16/21 21:01 Naloxone 0.4 Mg/Ml 1 Ml Vial IV Q2M PRN Opioid Reversal Non-Formulary Medication 70 mg 06/19/21 09:00 Alendronate Sodium [Fosamax] PO TH [facility] Nortriptyline HCl 100 mg 06/17/21 21:00 Nortriptyline 25 Mg Cap PO HS [facility] Nystatin 500,000 unit 06/16/21 22:00 06/16/21 23:39 Nystatin 100,000 Unit/Ml Susp 500,000 Unit/5 Ml Cup PO 500,000 unit QID ANGELITA Administration Ondansetron HCl 4 mg 06/16/21 21:01 Ondansetron 4 Mg/2 Ml Vial IVP Q8HR PRN Nausea And Vomiting Pantoprazole Sodium 40 mg 06/17/21 07:30 06/17/21 06:30 Pantoprazole 40 Mg Tablet PO 40 mg AC-BRKFST [facility] Administration Pravastatin Sodium 40 mg 06/17/21 21:00 Pravastatin Sodium 40 Mg Tab PO HS [facility] Prednisone 7.5 mg 06/17/21 09:00 Prednisone 2.5 Mg Tab PO DAILY [facility] Prednisone 5 mg 06/17/21 21:00 Prednisone 5 Mg Tab PO HS [facility] Tacrolimus 4 mg 06/17/21 21:00 Tacrolimus 1 Mg Cap PO HS [facility] Tacrolimus 3 mg 06/17/21 09:00 Tacrolimus 1 Mg Cap PO DAILY [facility] Temazepam 15 mg 06/16/21 21:01 Temazepam 15 Mg Cap PO HS PRN Insomnia Tramadol HCl 50 mg 06/16/21 21:01 Tramadol 50 Mg Tab PO Q6H PRN Moderate Pain Trimethoprim/Sulfamethoxazole 1 each 06/16/21 22:00 06/16/21 21:57 Sulfamethox-Tmp 800-160mg 1 Each Tab PO Not Given [id number] [facility] Vitamin E 400 unit 06/17/21 09:00 Vitamin E (Dl,Tocopheryl Acet) 400 Unit (180 Mg) Cap PO BID [facility] Intake and Output 06/16/21 06/17/21 06/17/21 22:59 06:59 14:59 Other: # Voids 1 1 Weight 50.349 kg 56 kg 06/16/21 17:57 06/16/21 17:57
--- NOTE | 2021-06-17 13:19 | P.HPIM ---
History of Present Illness H&P Date: 06/17/21 Chief Complaint: Fall with chest pain The patient is a 60-year-old white female with known history of cardiopathy and CVA who complained of arm and chest wall pain after a fall. Due to her overriding cardiac history, she was admitted for observation to rule out any type of cardiac contusion. She is seen in the morning after admission and speaking appropriately and even more clear speech since her CVA. Cardiology has been consulted and she is awaiting echocardiogram. 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 Review of Systems All systems: negative Constitutional: Denies chills, Denies fever Eyes: denies blurred vision, denies pain Ears, nose, mouth and throat: Denies headache, Denies sore throat Cardiovascular: Denies chest pain, Denies shortness of breath Respiratory: Denies cough Gastrointestinal: Denies abdominal pain, Denies diarrhea, Denies nausea, Denies vomiting Genitourinary: Denies dysuria, Denies hematuria Musculoskeletal: Denies myalgias Past Medical History Past Medical History: Heart Failure, CVA/TIA, Hyperlipidemia, Hypertension, Thyr oid Disorder Additional Past Medical History / Comment(s): 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 Heart transplant February 24, 2021 Past Anesthesia/Blood Transfusion Reactions: No Reported Reaction Past Psychological History: No Psychological Hx Reported Additional Psychological History / Comment(s): Pt resides with her spouse. She is independent. 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 Smoking Status: Former smoker Past Alcohol Use History: Occasional Additional Past Alcohol Use History / Comment(s): Pt started smoking in 1978 and quit in 2009. Past Drug Use History: None Reported - Past Family History Father Family Medical History: No Reported History Additional Family Medical History / Comment(s): Father is living. Mother Family Medical History: No Reported History Additional Family Medical History / Comment(s): Mother is living and healthy Medications and Allergies Home Medications Medication Instructions Recorded Confirmed Type Aspirin EC [Ecotrin Low Dose] 81 mg PO DAILY 05/14/20 06/16/21 History Nortriptyline [Pamelor] 100 mg PO HS 05/14/20 06/16/21 History Acetaminophen Tab [Tylenol Tab] 500 mg PO Q6H PRN 06/16/21 06/16/21 History Alendronate Sodium [Fosamax] 70 mg PO TH 06/16/21 06/16/21 History Ascorbic Acid [Vitamin C] 500 mg PO BID 06/16/21 06/16/21 History Calcium Citrate/Vitamin D3 1 tab PO TID-W/MEALS 06/16/21 06/16/21 History [Citracal + D Maximum Caplet] Citalopram Hydrobromide [CeleXA] 10 mg PO DAILY 06/16/21 06/16/21 History Levothyroxine Sodium [Synthroid] 50 mcg PO DAILY 06/16/21 06/16/21 History Magnesium Oxide 800 mg PO BID-W/MEALS 06/16/21 06/16/21 History Multivitamins, Thera [Multivitamin 1 tab PO DAILY 06/16/21 06/16/21 History (formulary)] Mycophenolate Mofetil [Cellcept] 500 mg PO BID 06/16/21 06/16/21 History Nystatin 100,000 Unit/ml Susp 5 ml PO QID 06/16/21 06/16/21 History [Mycostatin Oral Susp] Omeprazole 20 mg PO AC-BRKFST 06/16/21 06/16/21 History Pravastatin Sodium [Pravachol] 40 mg PO HS 06/16/21 06/16/21 History Sulfamethox-Tmp 800-160Mg [Bactrim 1 tab PO MOWEFR 06/16/21 06/16/21 History DS 800-160 mg] Tacrolimus [Prograf] 3 mg PO DAILY 06/16/21 06/16/21 History Tacrolimus [Prograf] 4 mg PO HS 06/16/21 06/16/21 History Vitamin E 400 unit PO BID 06/16/21 06/16/21 History hydroCHLOROthiazide [Hydrodiuril] 25 mg PO DAILY 06/16/21 06/16/21 History predniSONE 5 mg PO HS 06/16/21 06/16/21 History predniSONE 7.5 mg PO DAILY 06/16/21 06/16/21 History Allergies Allergy/AdvReac Type Severity Reaction Status Date / Time influenza virus vaccine, Allergy Unknown Verified 06/16/21 18:28 specific mold Allergy Unknown Verified 06/16/21 18:28 mushroom Allergy Unknown Verified 06/16/21 18:28 phenobarbital Allergy Unknown Verified 06/16/21 18:28 Childhood EGG WHITES Allergy Rash/Hives Uncoded 06/16/21 16:16 Physical Exam Vitals: Vital Signs Temp Pulse Pulse Resp BP BP Pulse Ox 06/17/21 08:32 86 18 138/96 99 06/17/21 04:00 89 16 126/91 97 06/17/21 00:00 98.2 F 96 20 141/89 97 06/16/21 21:24 96 18 133/85 98 06/16/21 20:02 98.6 F 102 H 18 148/104 100 06/16/21 16:16 97.2 F L 102 H 20 152/97 95 Intake and Output 06/16/21 06/17/21 06/17/21 22:59 06:59 14:59 Other: # Voids 1 1 Weight 50.349 kg 56 kg Results CBC & Chem 7: 06/16/21 17:57 06/16/21 17:57 Labs: Abnormal Lab Results - Last 24 Hours (Table) 06/16/21 06/16/21 06/16/21 Range/Units 17:57 17:57 17:57 RBC 3.74 L (3.80-5.40) m/uL MCV 103.5 H (80.0-100.0) fL RDW 16.6 H (11.5-15.5) % Lymphocytes # (Manual) 0.82 L (1.0-4.8) k/uL Sodium 133 L (137-145) mmol/L Chloride 96 L (98-107) mmol/L BUN 31 H (7-17) mg/dL Troponin I 0.068 H* (0.000-0.034) ng/mL 06/16/21 06/17/21 Range/Units 21:30 00:41 RBC (3.80-5.40) m/uL MCV (80.0-100.0) fL RDW (11.5-15.5) % Lymphocytes # (Manual) (1.0-4.8) k/uL Sodium (137-145) mmol/L Chloride (98-107) mmol/L BUN (7-17) mg/dL Troponin I 0.065 H* 0.070 H* (0.000-0.034) ng/mL Thrombosis Risk Factor Assmnt - Choose All That Apply Any of the Below Risk Factors Present?: Yes Each Factor Represents 1 point: Age 41-60 years Thrombosis Risk Factor Assessment Total Risk Factor Score: 1 Thrombosis Risk Factor Assessment Level: Low Risk Assessment and Plan (1) Fall Current Visit: Yes Status: Acute Code(s): W19.XXXA - UNSPECIFIED FALL, INITIAL ENCOUNTER SNOMED Code(s): 5033580 (2) Shortness of breath Current Visit: No Status: Acute Code(s): R06.02 - SHORTNESS OF BREATH SNOMED Code(s): 528588456 (3) Hyperlipidemia Current Visit: No Status: Chronic Code(s): E78.5 - HYPERLIPIDEMIA, UNSPECIFIED SNOMED Code(s): 02508122 Plan: The patient will be ruled out for myocardial infarction. We will go ahead and await echocardiogram. The patient will otherwise reconcile medication and we will hopefully discharge once cleared by cardiology. I do suspect that her chest wall pain is related more to the fall but given her cardiac history, we will clear her. Time with Patient: Less than 30
--- NOTE | 2021-06-17 13:21 | P.DS ---
Providers Date of admission: 06/16/21 21:01 Attending physician: Christopher Winchester Consults: 06/16/21 21:01 Consult Physician Routine Consulting Provider: Maurilio Julien Consult Reason/Comments: chest pain Do you want consulting provider notified?: Yes Primary care physician: Christopher Winchester - Discharge Diagnosis(es) (1) Fall Current Visit: Yes Status: Acute (2) Shortness of breath Current Visit: No Status: Acute (3) Hyperlipidemia Current Visit: No Status: Chronic Hospital Course: The patient was admitted for atypical chest pain following a fall. History of CHF and CVA in the past. Due to this, she was appropriately admitted to rule out myocardial infarction. The patient was cleared by cardiology with echocardiogram. Patient Condition at Discharge: Fair Plan - Discharge Summary Discharge Rx Participant: No New Discharge Prescriptions: Continue Nortriptyline [Pamelor] 100 mg PO HS Aspirin EC [Ecotrin Low Dose] 81 mg PO DAILY Calcium Citrate/Vitamin D3 [Citracal + D Maximum Caplet] 1 tab PO TID-W/MEALS Multivitamins, Thera [Multivitamin (formulary)] 1 tab PO DAILY Ascorbic Acid [Vitamin C] 500 mg PO BID Vitamin E 400 unit PO BID predniSONE 5 mg PO HS Sulfamethox-Tmp 800-160Mg [Bactrim DS 800-160 mg] 1 tab PO MOWEFR Omeprazole 20 mg PO AC-BRKFST Levothyroxine Sodium [Synthroid] 50 mcg PO DAILY Tacrolimus [Prograf] 4 mg PO HS Acetaminophen Tab [Tylenol] 500 mg PO Q6H PRN PRN Reason: Pain Magnesium Oxide 800 mg PO BID-W/MEALS Nystatin 100,000 Unit/ml Susp [Mycostatin Oral Susp] 5 ml PO QID predniSONE 7.5 mg PO DAILY hydroCHLOROthiazide [Hydrodiuril] 25 mg PO DAILY Pravastatin Sodium [Pravachol] 40 mg PO HS Citalopram Hydrobromide [CeleXA] 10 mg PO DAILY Alendronate Sodium [Fosamax] 70 mg PO TH Tacrolimus [Prograf] 3 mg PO DAILY Mycophenolate Mofetil [Cellcept] 500 mg PO BID Discharge Medication List Aspirin EC [Ecotrin Low Dose] 81 mg PO DAILY 05/14/20 [History] Nortriptyline [Pamelor] 100 mg PO HS 05/14/20 [History] Acetaminophen Tab [Tylenol] 500 mg PO Q6H PRN 06/16/21 [History] Alendronate Sodium [Fosamax] 70 mg PO TH 06/16/21 [History] Ascorbic Acid [Vitamin C] 500 mg PO BID 06/16/21 [History] Calcium Citrate/Vitamin D3 [Citracal + D Maximum Caplet] 1 tab PO TID-W/MEALS 06/16/21 [History] Citalopram Hydrobromide [CeleXA] 10 mg PO DAILY 06/16/21 [History] Levothyroxine Sodium [Synthroid] 50 mcg PO DAILY 06/16/21 [History] Magnesium Oxide 800 mg PO BID-W/MEALS 06/16/21 [History] Multivitamins, Thera [Multivitamin (formulary)] 1 tab PO DAILY 06/16/21 [History] Mycophenolate Mofetil [Cellcept] 500 mg PO BID 06/16/21 [History] Nystatin 100,000 Unit/ml Susp [Mycostatin Oral Susp] 5 ml PO QID 06/16/21 [History] Omeprazole 20 mg PO AC-BRKFST 06/16/21 [History] Pravastatin Sodium [Pravachol] 40 mg PO HS 06/16/21 [History] Sulfamethox-Tmp 800-160Mg [Bactrim DS 800-160 mg] 1 tab PO MOWEFR 06/16/21 [History] Tacrolimus [Prograf] 3 mg PO DAILY 06/16/21 [History] Tacrolimus [Prograf] 4 mg PO HS 06/16/21 [History] Vitamin E 400 unit PO BID 06/16/21 [History] hydroCHLOROthiazide [Hydrodiuril] 25 mg PO DAILY 06/16/21 [History] predniSONE 5 mg PO HS 06/16/21 [History] predniSONE 7.5 mg PO DAILY 06/16/21 [History] Follow up Appointment(s)/Referral(s): Christopher Winchester MD [Primary Care Provider] - 1-2 days Kvein Molina MD [REFERRING] - 1 Week
[2021-06-17] MEDS ORDERED: NORTRIPTYLINE 25 MG CAP PO SCH (21:00)
[2021-06-17] MEDS ORDERED: predniSONE 5 MG TAB PO SCH (21:00)
[2021-06-17] MEDS ORDERED: PRAVASTATIN SODIUM 40 MG TAB PO SCH (21:00)
[2021-06-19] MEDS ORDERED: NON FORMULARY DRUG (Alendronate Sodium [Fosamax] 70 MG Tablet) PO SCH (09:00)
== END 2021-06-17 14:00 | disposition home or self-care (01) ==
LOC: EC 14:59 → 3SCARD 21:01
PROVIDERS: ADMIT Family Medicine; ATTEND Family Medicine
DX: R07.89 Other chest pain (principal); Z94.1 Heart transplant status; R79.89 Other specified abnormal findings of blood chemistry; I11.9 Hypertensive heart disease without heart failure; I45.10 Unspecified right bundle-branch block; I08.3 Combined rheumatic disorders of mitral, aortic and tricuspid valves; E03.9 Hypothyroidism, unspecified; G43.909 Migraine, unspecified, not intractable, without status migrainosus; I69.354 Hemiplegia and hemiparesis following cerebral infarction affecting left non-dominant side; E78.5 Hyperlipidemia, unspecified; W01.190A Fall on same level from slipping, tripping and stumbling with subsequent striking against furniture, initial encounter; Z20.822 Contact with and (suspected) exposure to COVID-19; Z79.82 Long term (current) use of aspirin; Z79.83 Long term (current) use of bisphosphonates; Z79.52 Long term (current) use of systemic steroids; Z79.890 Hormone replacement therapy; Z79.899 Other long term (current) drug therapy; Z91.012 Allergy to eggs; Z88.7 Allergy status to serum and vaccine; Z91.018 Allergy to other foods; Z91.048 Other nonmedicinal substance allergy status; Z87.891 Personal history of nicotine dependence; Z98.890 Other specified postprocedural states; Z86.79 Personal history of other diseases of the circulatory system; Z16.24 Resistance to multiple antibiotics
CPT/HCPCS: 99285; 36415; 93005; 93306; 80053; 83735; 84484 ×2; 85025; 87635; 71045; 70450; G0378 ×2; J7507; J7517; J7512 ×2

== ENCOUNTER → 2021-06-24 | Outpatient (CLI) | payer OTHER ==
[2021-06-24 18:52] LABS: HGB 11.6 g/dL (12.0-15.0); MCH 33.8 pg (27.0-32.0); MCHC 31.4 g/dL (32.0-37.0); MCV 107.9 fL (80.0-97.0); Mean Platelet Volume 9.7 fL (9.5-12.2); Platelet Count 378 X 10*3/uL (140-440); RBC 3.43 X 10*6/uL (4.10-5.20); RDW 15.4 % (11.5-14.5); WBC 5.48 X 10*3/uL (4.50-10.00)
[2021-06-24 19:30] LABS: Basophils # (M) 0 X 10*3/uL (0.00-0.10); Eosinophils # (M) 0 X 10*3/uL (0.04-0.35); Lymphocytes # (M) 2.14 X 10*3/uL (0.90-5.00); Monocytes # (M) 0.22 X 10*3/uL (0.20-1.00); Neutrophils # (M) 3.12 X 10*3/uL (2.00-8.90); Neutrophils % (M) 57 %; Stomatocytes 2+
[2021-06-24 20:19] LABS: T4, Free (Free Thyroxine) 1.15 ng/dL (0.800-1.800)
== END | disposition home or self-care (01) ==
LOC: LABWHC1 11:23
PROVIDERS: ATTEND Internal Medicine
DX: T86.21 Heart transplant rejection (principal); T86.22 Heart transplant failure; T86.23 Heart transplant infection; T86.290 Cardiac allograft vasculopathy; E78.2 Mixed hyperlipidemia; I50.30 Unspecified diastolic (congestive) heart failure; Z94.1 Heart transplant status; Y71.8 Miscellaneous cardiovascular devices associated with adverse incidents, not elsewhere classified
CPT/HCPCS: 36415; 84439; 84443; 85025

== ENCOUNTER → 2021-07-02 | Outpatient (CLI) | payer OTHER ==
[2021-07-02 18:51] LABS: African American GFR (CKD) 99.6 (60.0-200.0); Albumin 4.3 g/dL (3.8-4.9); Albumin/Globulin Ratio 2.06 (1.60-3.17); Anion Gap 14.8 mmol/L (10.00-18.00); BUN/Creat Ratio 42.15 Ratio (12.00-20.00); Blood Urea Nitrogen 32.2 mg/dL (9.0-27.0); Calcium 9.1 mg/dL (8.7-10.3); Carbon Dioxide 25.9 mmol/L (20.0-27.5); Globulin 2.1 g/dL (1.6-3.3); Magnesium 2.1 mg/dL (1.5-2.4); Non-African American GFR(CKD) 85.9 (60.0-200.0); Potassium 3.3 mmol/L (3.5-5.5); Total Bilirubin 0.2 mg/dL (0.30-1.20); Total Protein 6.3 g/dL (6.2-8.2)
[2021-07-02 18:58] LABS: HCT 39.3 % (37.2-46.3); HGB 11.6 g/dL (12.0-15.0); MCH 32.4 pg (27.0-32.0); MCHC 29.5 g/dL (32.0-37.0); MCV 109.8 fL (80.0-97.0); Mean Platelet Volume 9.7 fL (9.5-12.2); Platelet Count 348 X 10*3/uL (140-440); RBC 3.58 X 10*6/uL (4.10-5.20); RDW 15.2 % (11.5-14.5); WBC 5.03 X 10*3/uL (4.50-10.00)
[2021-07-02 19:35] LABS: Eosinophils # (M) 0.05 X 10*3/uL (0.04-0.35); Lymphocytes # (M) 1.56 X 10*3/uL (0.90-5.00); Metamyelocytes % 1 % (0-0); Neutrophils # (M) 3.17 X 10*3/uL (2.00-8.90); Neutrophils % (M) 63 %
[2021-07-04 13:46] LABS: CMV DNA Qualitative Not detected (Not detected); CMV DNA, Quantitative <50 IU/mL (<50); LOG CMV Copies/mL <126 Copies/mL (<126); Log Cytomegalovirus <1.70 (<1.70)
== END | disposition home or self-care (01) ==
LOC: LABWHC1 11:30
PROVIDERS: ATTEND Internal Medicine
DX: I50.30 Unspecified diastolic (congestive) heart failure (principal); E78.2 Mixed hyperlipidemia; T86.22 Heart transplant failure; Y69 Unspecified misadventure during surgical and medical care
CPT/HCPCS: 36415; 80053; 82550; 83735; 83880; 85025; 87497

== ENCOUNTER → 2021-07-21 | Outpatient (CLI) | payer OTHER ==
[2021-07-21 14:59] LABS: HCT 37.7 % (37.2-46.3); MCH 32.2 pg (27.0-32.0); MCHC 29.2 g/dL (32.0-37.0); MCV 110.2 fL (80.0-97.0); Mean Platelet Volume 9.6 fL (9.5-12.2); Platelet Count 400 X 10*3/uL (140-440); RBC 3.42 X 10*6/uL (4.10-5.20); RDW 14.2 % (11.5-14.5); WBC 4.33 X 10*3/uL (4.50-10.00)
[2021-07-21 15:35] LABS: Basophils # (M) 0.09 X 10*3/uL (0.00-0.10); Eosinophils # (M) 0 X 10*3/uL (0.04-0.35); Lymphocytes # (M) 1.39 X 10*3/uL (0.90-5.00); Metamyelocytes % 2 % (0-0); Monocytes # (M) 0.13 X 10*3/uL (0.20-1.00); Myelocytes % 1 % (0-0); Neutrophils % (M) 60 %
[2021-07-21 16:14] LABS: African American GFR (CKD) 103.7 (60.0-200.0); Anion Gap 12.8 mmol/L (10.00-18.00); BUN/Creat Ratio 25.58 Ratio (12.00-20.00); Blood Urea Nitrogen 18.9 mg/dL (9.0-27.0); Calcium 8.9 mg/dL (8.7-10.3); Carbon Dioxide 26.9 mmol/L (20.0-27.5); Non-African American GFR(CKD) 89.4 (60.0-200.0); Potassium 4.4 mmol/L (3.5-5.5)
== END | disposition home or self-care (01) ==
LOC: LABWHC1 10:12
PROVIDERS: ATTEND Internal Medicine
DX: T86.23 Heart transplant infection (principal); T86.21 Heart transplant rejection; T86.290 Cardiac allograft vasculopathy; T86.22 Heart transplant failure; E78.2 Mixed hyperlipidemia; Z94.1 Heart transplant status
CPT/HCPCS: 36415; 80048; 85025

== ENCOUNTER → 2021-08-28 | Outpatient (CLI) | payer OTHER ==
[2021-08-28 19:42] LABS: HCT 39.4 % (37.2-46.3); HGB 11.6 g/dL (12.0-15.0); MCH 30.9 pg (27.0-32.0); MCHC 29.4 g/dL (32.0-37.0); MCV 105.1 fL (80.0-97.0); Mean Platelet Volume 10.2 fL (9.5-12.2); Platelet Count 343 X 10*3/uL (140-440); RBC 3.75 X 10*6/uL (4.10-5.20); RDW 13.9 % (11.5-14.5); WBC 7.79 X 10*3/uL (4.50-10.00)
[2021-08-28 19:54] LABS: African American GFR (CKD) 94.2 (60.0-200.0); Anion Gap 12.5 mmol/L (10.00-18.00); BUN/Creat Ratio 36.75 Ratio (12.00-20.00); Blood Urea Nitrogen 29.4 mg/dL (9.0-27.0); Calcium 9.1 mg/dL (8.7-10.3); Carbon Dioxide 26.5 mmol/L (20.0-27.5); Non-African American GFR(CKD) 81.3 (60.0-200.0); Potassium 3.8 mmol/L (3.5-5.5)
[2021-08-28 20:26] LABS: Basophils # (M) 0.16 X 10*3/uL (0.00-0.10); Eosinophils # (M) 0.08 X 10*3/uL (0.04-0.35); Lymphocytes # (M) 1.48 X 10*3/uL (0.90-5.00); Macrocytosis (M) 2+; Metamyelocytes % 1 % (0-0); Monocytes # (M) 0.23 X 10*3/uL (0.20-1.00); Myelocytes % 1 % (0-0); Neutrophils # (M) 5.61 X 10*3/uL (2.00-8.90); Neutrophils % (M) 72 %; Promyelocytes % 1 % (0-0)
== END | disposition home or self-care (01) ==
LOC: LABWHC1 11:46
PROVIDERS: ATTEND Internal Medicine
DX: I50.30 Unspecified diastolic (congestive) heart failure (principal); E78.2 Mixed hyperlipidemia; T86.21 Heart transplant rejection; T86.22 Heart transplant failure; T86.23 Heart transplant infection; T86.290 Cardiac allograft vasculopathy; Y82.8 Other medical devices associated with adverse incidents
CPT/HCPCS: 36415; 80048; 85025

== ENCOUNTER → 2021-09-04 | Outpatient (CLI) | payer OTHER ==
[2021-09-04 13:48] LABS: African American GFR (CKD) 94.2 (60.0-200.0); Anion Gap 14.4 mmol/L (10.00-18.00); BUN/Creat Ratio 36.13 Ratio (12.00-20.00); Blood Urea Nitrogen 28.9 mg/dL (9.0-27.0); Calcium 8.9 mg/dL (8.7-10.3); Carbon Dioxide 24.6 mmol/L (20.0-27.5); Non-African American GFR(CKD) 81.3 (60.0-200.0); Potassium 3.5 mmol/L (3.5-5.5)
== END | disposition home or self-care (01) ==
LOC: LABWHC1 08:53
PROVIDERS: ATTEND Internal Medicine
DX: I50.30 Unspecified diastolic (congestive) heart failure (principal); E78.2 Mixed hyperlipidemia; T86.21 Heart transplant rejection; T86.22 Heart transplant failure; T86.23 Heart transplant infection; T86.290 Cardiac allograft vasculopathy; Y71.2 Prosthetic and other implants, materials and accessory cardiovascular devices associated with adverse incidents
CPT/HCPCS: 36415; 80048

== ENCOUNTER → 2022-07-07 | Outpatient (CLI) | payer OTHER ==
--- NOTE | 2022-07-07 13:08 | XR ---
EXAMINATION TYPE: XR ribs RT DATE OF EXAM: 07/07/2022 COMPARISON: NONE HISTORY: Pain TECHNIQUE: 2 views submitted FINDINGS: Transabdominal and ECG joint arthropathy. Clavicle intact. Postsurgical change involving th e mediastinum. Visualized rib cage is intact. IMPRESSION: No acute displaced rib fracture.
== END | disposition home or self-care (01) ==
LOC: RADXRMAIN 12:26
PROVIDERS: ATTEND Family Medicine
DX: R06.02 Shortness of breath (principal)